=== PATIENT | female | born 1965 | race Caucasian/White ===

== ENCOUNTER → 2017-01-09 | Outpatient (CLI) | payer OTHER ==
[~2017-01-09] MED LIST: /DULO30CA; ABIL2TAB; CELE20TA; CELE40TA; CELE40TA PO; KLON0.5T; KLON1TAB; MELO15TA4 PO; NEUR100C; SYNT88TA; SYNT88TA2 PO; TOPA25TA10 PO; TRAZ50TA4 PO
[2017-01-09 17:55] LABS: BASO % 0.5 % (0.0-1.0); EOS # 0.2 K/mm3 (0.0-0.50); EOS % 4.1 % (0.0-3.0); LARGE UNSTAINED CELL # 0.1 K/mm3 (0.0-0.4); LARGE UNSTAINED CELL % 1.2 % (0.0-4.0); LYMPH % 16.5 % (24.0-44.0); MEAN CORPUSCULAR HEMOGLOBIN 31.1 pg (27.0-33.0); MEAN CORPUSCULAR HGB CONC 34.1 g/dl (32.0-36.5); MONO # 0.3 K/mm3 (0.0-0.8); NEUTROPHILS # 4.6 K/mm3 (1.8-7.7); NEUTROPHILS % 72.7 % (36.0-66.0); PLATELET COUNT, AUTOMATED 257 k/mm3 (150-450); RED CELL DISTRIBUTION WIDTH 13.1 % (11.5-14.5); WHITE BLOOD COUNT 6.2 K/mm3 (4.0-10.0)
[2017-01-09 17:58] LABS: ALBUMIN 4.1 GM/DL (3.2-5.2); ALBUMIN/GLOBULIN RATIO 1.28 (1.00-1.93); ALKALINE PHOSPHATASE 81 U/L (45-117); ALT/SGPT 17 U/L (12-78); ANION GAP 4 MEQ/L (8-16); AST/SGOT 14 U/L (15-37); BILIRUBIN,TOTAL 0.4 MG/DL (0.2-1.0); BLOOD UREA NITROGEN 7 MG/DL (7-18); CALCIUM LEVEL 9.4 MG/DL (8.5-10.1); CARBON DIOXIDE LEVEL 33 MEQ/L (21-32); CHLORIDE LEVEL 106 MEQ/L (98-107); CHOLESTEROL LEVEL 172 MG/DL (<200); GLOMERULAR FILTRATION RATE > 60.0 (>51); GLUCOSE, FASTING 92 MG/DL (70-105); POTASSIUM SERUM 4.7 MEQ/L (3.5-5.1); SODIUM LEVEL 143 MEQ/L (136-145); TOTAL PROTEIN 7.3 GM/DL (6.4-8.2); TRIGLYCERIDES LEVEL 118 MG/DL (<150)
== END ==
LOC: M WUC 12:11
DX: Z00.01 Encounter for general adult medical examination with abnormal findings (principal); Z20.89 Contact with and (suspected) exposure to other communicable diseases; E03.8 Other specified hypothyroidism

== ENCOUNTER → 2017-08-24 | Outpatient (REF) | payer OTHER ==
[~2017-08-24] MED LIST changes: +TOPA1TAB PO; -TOPA25TA10 PO; +TRAZ50TA11 PO; -TRAZ50TA4 PO
[2017-08-24 20:53] LABS: MEAN CORPUSCULAR HEMOGLOBIN 29.9 pg (27.0-33.0); MEAN CORPUSCULAR HGB CONC 33.3 g/dl (32.0-36.5); MEAN CORPUSCULAR VOLUME 89.8 fl (80.0-96.0); PLATELET COUNT, AUTOMATED 250 10^3/uL (150-450); RED CELL DISTRIBUTION WIDTH 12.9 % (11.5-14.5); WHITE BLOOD COUNT 5.3 10^3/uL (4.0-10.0)
[2017-08-24 21:37] LABS: ALBUMIN 3.9 GM/DL (3.2-5.2); ALKALINE PHOSPHATASE 74 U/L (45-117); ALT/SGPT 22 U/L (12-78); ANION GAP 4 MEQ/L (8-16); AST/SGOT 16 U/L (7-37); BILIRUBIN,TOTAL 0.3 MG/DL (0.2-1.0); BLOOD UREA NITROGEN 12 MG/DL (7-18); CALCIUM LEVEL 9.2 MG/DL (8.5-10.1); CARBON DIOXIDE LEVEL 32 MEQ/L (21-32); CHLORIDE LEVEL 107 MEQ/L (98-107); CHOLESTEROL LEVEL 159 MG/DL (<200); CREATININE FOR GFR 0.74 MG/DL (0.55-1.02); GLOMERULAR FILTRATION RATE > 60.0 (>51); GLUCOSE, FASTING 90 MG/DL (70-105); POTASSIUM SERUM 4.5 MEQ/L (3.5-5.1); SODIUM LEVEL 143 MEQ/L (136-145); TOTAL PROTEIN 6.9 GM/DL (6.4-8.2); TRIGLYCERIDES LEVEL 106 MG/DL (<150)
== END ==
LOC: M SFHCLERA 16:01
PROVIDERS: ATTEND Physician Assistant
DX: E03.9 Hypothyroidism, unspecified (principal); Z72.0 Tobacco use

== ENCOUNTER → 2017-10-12 | Outpatient (REF) | payer OTHER ==
[2017-10-15 14:13] LABS: HPV HYBRID CAPTURE II Positive (Negative)
== END ==
LOC: M SFHCWAGY 09:32
DX: Z12.4 Encounter for screening for malignant neoplasm of cervix (principal)

== ENCOUNTER → 2017-10-13 | Outpatient (CLI) | payer OTHER | LOC: M WHC 13:01 | DX: Z12.31 Encounter for screening mammogram for malignant neoplasm of breast (principal) | CPT/HCPCS: 76830 ==

== ENCOUNTER → 2017-11-01 | Outpatient (REF) | payer OTHER | LOC: M SFHCWAGY 15:47 | DX: R87.810 Cervical high risk human papillomavirus (HPV) DNA test positive (principal) ==

== ENCOUNTER → 2017-12-14 | Outpatient (CLI) | payer OTHER ==
[2017-12-14 19:53] LABS: BASO # 0.1 10^3/uL (0.0-0.2); EOS # 0.4 10^3/uL (0.0-0.50); HEMATOCRIT 41.2 % (36.0-47.0); HEMOGLOBIN 13.6 g/dl (12.0-16.0); IMMATURE GRANULOCYTE % 0.2 % (0-3.0); LYMPH # 1.3 10^3/uL (1.5-4.5); LYMPH % 23.8 % (24.0-44.0); MEAN CORPUSCULAR VOLUME 87.8 fl (80.0-96.0); MONO # 0.4 10^3/uL (0.0-0.8); MONO % 7.2 % (0.0-5.0); NEUTROPHILS # 3.2 10^3/uL (1.8-7.7); NEUTROPHILS % 60.8 % (36.0-66.0); PLATELET COUNT, AUTOMATED 238 10^3/uL (150-450); RED BLOOD COUNT 4.69 10^6/uL (4.00-5.40); RED CELL DISTRIBUTION WIDTH 13.2 % (11.5-14.5); WHITE BLOOD COUNT 5.3 10^3/uL (4.0-10.0)
[2017-12-14 20:13] LABS: ESTIMATED AVERAGE GLUCOSE 97 MG/DL (60-110)
[2017-12-14 20:14] LABS: TOTAL 25(OH) VITAMIN D 20.4 NG/ML (30.0-100.0); VITAMIN B12 LEVEL 473 PG/ML (247-911)
[2017-12-14 20:41] LABS: ALBUMIN 3.8 GM/DL (3.2-5.2); ALBUMIN/GLOBULIN RATIO 1.23 (1.00-1.93); ALKALINE PHOSPHATASE 79 U/L (45-117); ALT/SGPT 14 U/L (12-78); ANION GAP 3 MEQ/L (8-16); AST/SGOT 15 U/L (7-37); BILIRUBIN,TOTAL 0.4 MG/DL (0.2-1.0); BLOOD UREA NITROGEN 11 MG/DL (7-18); CALCIUM LEVEL 9.1 MG/DL (8.5-10.1); CARBON DIOXIDE LEVEL 31 MEQ/L (21-32); CHLORIDE LEVEL 111 MEQ/L (98-107); CHOLESTEROL LEVEL 193 MG/DL (<200); CHOLESTEROL RISK RATIO 5.361 (<5); CREATININE FOR GFR 0.75 MG/DL (0.55-1.30); GLOMERULAR FILTRATION RATE > 60.0 (>51); GLUCOSE, FASTING 95 MG/DL (70-100); HDL CHOLESTEROL 36 MG/DL (>40); LDL CHOLESTEROL 125.8 MG/DL (<100); NON-HDL-C 157 MG/DL; POTASSIUM SERUM 4.6 MEQ/L (3.5-5.1); SODIUM LEVEL 145 MEQ/L (136-145); TOTAL PROTEIN 6.9 GM/DL (6.4-8.2); TRIGLYCERIDES LEVEL 156 MG/DL (<150)
== END ==
LOC: M WUC 15:44
DX: F33.1 Major depressive disorder, recurrent, moderate (principal)
CPT/HCPCS: 84443

== ENCOUNTER → 2017-12-24 | Outpatient (REF) | payer OTHER ==
[2017-12-24 12:33] LABS: BASO # 0.1 10^3/uL (0.0-0.2); BASO % 1.1 % (0.0-1.0); EOS # 0.5 10^3/uL (0.0-0.50); EOS % 9.7 % (0.0-3.0); HEMATOCRIT 42.9 % (36.0-47.0); HEMOGLOBIN 14.2 g/dl (12.0-15.5); IMMATURE GRANULOCYTE % 0.2 % (0-3.0); LYMPH # 1.1 10^3/uL (1.5-4.5); LYMPH % 20.3 % (24.0-44.0); MEAN CORPUSCULAR HEMOGLOBIN 28.9 pg (27.0-33.0); MEAN CORPUSCULAR HGB CONC 33.1 g/dl (32.0-36.5); MEAN CORPUSCULAR VOLUME 87.4 fl (80.0-96.0); MONO # 0.5 10^3/uL (0.0-0.8); MONO % 9.7 % (0.0-5.0); NEUTROPHILS # 3.1 10^3/uL (1.8-7.7); PLATELET COUNT, AUTOMATED 255 10^3/uL (150-450); RED BLOOD COUNT 4.91 10^6/uL (4.00-5.40); RED CELL DISTRIBUTION WIDTH 13.2 % (11.5-14.5); WHITE BLOOD COUNT 5.3 10^3/uL (4.0-10.0)
[2017-12-24 13:05] LABS: ESTIMATED AVERAGE GLUCOSE 105 MG/DL (60-110); HEMOGLOBIN A1c 5.3 %
[2017-12-24 13:23] LABS: VITAMIN B12 LEVEL 613 PG/ML
[2017-12-24 13:24] LABS: FOLATE 11.8 NG/ML
[2017-12-24 13:25] LABS: ALBUMIN 4.1 GM/DL (3.2-5.2); ALBUMIN/GLOBULIN RATIO 1.37 (1.00-1.93); ALKALINE PHOSPHATASE 82 U/L (45-117); ALT/SGPT 11 U/L (12-78); ANION GAP 6 MEQ/L (8-16); AST/SGOT 12 U/L (7-37); BILIRUBIN,TOTAL 0.4 MG/DL (0.2-1.0); BLOOD UREA NITROGEN 14 MG/DL (7-18); CALCIUM LEVEL 8.8 MG/DL (8.5-10.1); CARBON DIOXIDE LEVEL 28 MEQ/L (21-32); CHLORIDE LEVEL 109 MEQ/L (98-107); CREATININE FOR GFR 0.78 MG/DL (0.55-1.30); GLOMERULAR FILTRATION RATE > 60.0 (>51); GLUCOSE, FASTING 79 MG/DL (70-100); POTASSIUM SERUM 3.7 MEQ/L (3.5-5.1); RHEUMATOID FACTOR QUANT < 10.0 IU/ML (<15.0); SODIUM LEVEL 143 MEQ/L (136-145); THYROID STIMULATING HORMONE 0.677 uIU/ML (0.358-3.740); TOTAL PROTEIN 7.1 GM/DL (6.4-8.2)
[2017-12-24 14:06] LABS: ERYTHROCYTE SEDIMENTATION RATE 5 mm/hr (0-30)
[2017-12-27 14:28] LABS: ALPHA-1-GLOBULIN % 3.9 % (2.9-4.9); ALPHA-1-GLOBULINS 0.28 GM/DL (0.17-0.41); ALPHA-2-GLOBULINS 0.76 GM/DL (0.42-0.99); ALPHA-2-GLOBULINS % 10.7 % (7.1-11.8); BETA-1-GLOBULINS 0.48 GM/DL (0.28-0.60); BETA-1-GLOBULINS % 6.7 % (4.7-7.2); BETA-2-GLOBULINS 0.35 GM/DL (0.19-0.55); BETA-2-GLOBULINS % 4.9 % (3.2-6.5); GAMMA GLOBULIN % 11.8 % (11.1-18.8); GAMMA GLOBULINS 0.84 GM/DL (0.65-1.58)
[2017-12-28 09:59] LABS: DRVV SCREEN 36.7 SEC; PTT LUPUS TYPE ANTICOAG SCREEN 0.9 (0-1.2)
[2017-12-30 00:07] LABS: ANTI DOUBLE STRAND-DNA AB <1 IU/mL (0-9); ANTINUCLEAR ANTIBODIES DIRECT Negative (Negative); CERULOPLASMIN 22.3 mg/dL (19.0-39.0); COPPER PLASMA 117 ug/dL (72-166); LEAD BLOOD ADULT 2 ug/dL (0-19); MERCURY LEVEL None Detected ug/L (0.0-14.9); SJOGREN'S ANTI SS-A <0.2 AI (0.0-0.9); SJOGREN'S ANTI SS-B <0.2 AI (0.0-0.9); VITAMIN B1 LEVEL WHOLE BLOOD 106.7 nmol/L (66.5-200.0); VITAMIN B6,PYRIDOXAL PHOSPHATE 4.3 ug/L (2.0-32.8); VITAMIN E(ALPHA TOCOPHEROL) 9.8 mg/L (7.0-25.1); VITAMIN E(GAMMA TOCOPHEROL) 1.6 mg/L (0.5-5.5)
== END ==
LOC: M LABNEURO 09:38
DX: R25.1 Tremor, unspecified (principal); G58.9 Mononeuropathy, unspecified
CPT/HCPCS: 82525

== ENCOUNTER 2018-01-19 00:11 | Emergency (ER) | payer OTHER | END 2018-01-19 05:10 | disposition left against medical advice (07) | LOC: M ED 00:11 | DX: Z53.21 Procedure and treatment not carried out due to patient leaving prior to being seen by health care provider (principal) ==

== ENCOUNTER 2018-01-21 10:54 | Emergency (ER) | payer OTHER ==
[2018-01-21] MEDS: METHOCARBAMOL 500 MG TAB PO (11:33)
[2018-01-21] MEDS: KETOROLAC 60 MG/2 ML VIAL (J1885) IM (11:33)
== END 2018-01-21 11:58 | disposition home or self-care (01) ==
LOC: M ED 10:54
DX: M54.9 Dorsalgia, unspecified (principal); E07.9 Disorder of thyroid, unspecified; F17.210 Nicotine dependence, cigarettes, uncomplicated
CPT/HCPCS: J1885

== ENCOUNTER 2018-02-17 22:46 | Inpatient (IN) | payer MEDICAID, OTHER ==
[2018-02-17 23:23] LABS: HEMATOCRIT 39.4 % (36.0-47.0); HEMOGLOBIN 13.1 g/dl (12.0-15.5); MEAN CORPUSCULAR HEMOGLOBIN 29.1 pg (27.0-33.0); MEAN CORPUSCULAR HGB CONC 33.2 g/dl (32.0-36.5); MEAN CORPUSCULAR VOLUME 87.6 fl (80.0-96.0); PLATELET COUNT, AUTOMATED 275 10^3/uL (150-450); RED CELL DISTRIBUTION WIDTH 13.1 % (11.5-14.5); WHITE BLOOD COUNT 6.7 10^3/uL (4.0-10.0)
[2018-02-18 00:04] LABS: AMPHETAMINES LEVEL URINE NEGATIVE (NEGATIVE); BARBITURATES URINE NEGATIVE (NEGATIVE); BENZODIAZEPINES URINE NEGATIVE (NEGATIVE); CANNABINOIDS URINE POSITIVE (NEGATIVE); COCAINE METABOLITE URINE NEGATIVE (NEGATIVE); METHADONE URINE NEGATIVE (NEGATIVE); OPIATES URINE NEGATIVE (NEGATIVE); PHENCYCLIDINE URINE NEGATIVE (NEGATIVE)
[2018-02-18] MEDS: NICOTINE 21MG/24HR 1 EA TRANSDERMAL TD (01:07)
[2018-02-18 01:31] LABS: BLOOD UREA NITROGEN 23 MG/DL (7-18); CHLORIDE LEVEL 107 MEQ/L (98-107); CREATININE FOR GFR 1.06 MG/DL (0.55-1.30); GLUCOSE, FASTING 101 MG/DL (70-100); POTASSIUM SERUM 3.8 MEQ/L (3.5-5.1); SODIUM LEVEL 140 MEQ/L (136-145)
[2018-02-18 01:32] LABS: ACETAMINOPHEN LEVEL < 2.0 UG/ML (10.0-30.0); ALBUMIN 4.4 GM/DL (3.2-5.2); ALBUMIN/GLOBULIN RATIO 1.33 (1.00-1.93); ALKALINE PHOSPHATASE 83 U/L (45-117); ALT/SGPT 25 U/L (12-78); ANION GAP 4 MEQ/L (8-16); AST/SGOT 21 U/L (7-37); BILIRUBIN,DIRECT 0.1 MG/DL (0.0-0.2); BILIRUBIN,TOTAL 0.4 MG/DL (0.2-1.0); CALCIUM LEVEL 9.2 MG/DL (8.5-10.1); CARBON DIOXIDE LEVEL 29 MEQ/L (21-32); ETHYL ALCOHOL (ETHANOL) < 0.003 % (0.000-0.010); SALICYLATE LEVEL 3.6 MG/DL (5.0-30.0); TOTAL PROTEIN 7.7 GM/DL (6.4-8.2)
[2018-02-18] MEDS: diphenhydrAMINE INJ 50MG/ML VIAL (J1200) IM (02:19)
[2018-02-18] MEDS: HALOPERIDOL 5 MG/ML VIAL (J1630) IM (02:20)
[2018-02-18] MEDS ORDERED: MOM 30ML SUSPENSION UDC PO (06:45)
[2018-02-18] MEDS ORDERED: traZODone 50 MG TAB PO (06:45)
[2018-02-18] MEDS ORDERED: MAALOX 30 ML SUSP *UDC PO (06:45)
[2018-02-18] MEDS: ACETAMINOPHEN TAB 650MG DOSE (2X325MG) PO ×2 (12:24→21:52)
[2018-02-18] MEDS ORDERED: hydrOXYzine 25 MG TAB PO (12:30)
[2018-02-18] MEDS: lamoTRIgine 25 MG TAB PO ×2 (13:32→21:50)
[2018-02-18] MEDS: LEVOTHYROXINE 88MCG TABLET (0.088 MG) PO (13:33)
[2018-02-18] MEDS: DULoxetine 30 MG CAP (CYMBALTA) PO (13:33)
[2018-02-18] MEDS: MELOXICAM (MOBIC) 7.5 MG TAB PO (13:33)
[2018-02-18] MEDS: LURASIDONE HCL 40 MG TAB (LATUDA) PO (17:46)
[2018-02-19] MEDS: traZODone 50 MG TAB PO ×2 (00:05→21:10)
[2018-02-19] MEDS: LEVOTHYROXINE 88MCG TABLET (0.088 MG) PO (06:00)
[2018-02-19] MEDS: lamoTRIgine 25 MG TAB PO ×2 (08:14→21:09)
[2018-02-19] MEDS: MELOXICAM (MOBIC) 7.5 MG TAB PO (08:14)
[2018-02-19] MEDS: DULoxetine 30 MG CAP (CYMBALTA) PO (08:14)
[2018-02-19] MEDS: ACETAMINOPHEN TAB 650MG DOSE (2X325MG) PO ×2 (13:38→21:09)
[2018-02-19] MEDS: LURASIDONE HCL 40 MG TAB (LATUDA) PO (17:49)
[2018-02-19] MEDS: NICOTINE 21MG/24HR 1 EA TRANSDERMAL TD (18:09)
[2018-02-20] MEDS: LEVOTHYROXINE 88MCG TABLET (0.088 MG) PO (06:07)
[2018-02-20] MEDS: DULoxetine 30 MG CAP (CYMBALTA) PO (09:15)
[2018-02-20] MEDS: MELOXICAM (MOBIC) 7.5 MG TAB PO (09:15)
[2018-02-20] MEDS: lamoTRIgine 25 MG TAB PO ×2 (09:15→21:30)
[2018-02-20] MEDS: NICOTINE 21MG/24HR 1 EA TRANSDERMAL TD (09:15)
[2018-02-20] MEDS: LURASIDONE HCL 40 MG TAB (LATUDA) PO (18:07)
[2018-02-20] MEDS: ACETAMINOPHEN TAB 650MG DOSE (2X325MG) PO (19:16)
[2018-02-20] MEDS: traZODone 50 MG TAB PO (22:59)
[2018-02-21] MEDS: LEVOTHYROXINE 88MCG TABLET (0.088 MG) PO (06:05)
[2018-02-21] MEDS: DULoxetine 30 MG CAP (CYMBALTA) PO (08:30)
[2018-02-21] MEDS: NICOTINE 21MG/24HR 1 EA TRANSDERMAL TD (08:31)
[2018-02-21] MEDS: MELOXICAM (MOBIC) 7.5 MG TAB PO (08:31)
[2018-02-21] MEDS: lamoTRIgine 25 MG TAB PO (08:31)
== END 2018-02-21 14:20 | disposition home or self-care (01) | DRG 885 ==
LOC: M PSY 02-19 21:18 → M ED 22:46 → M ED INP 02-18 06:31 → M PSY 02-18 10:03
DX: F31.64 Bipolar disorder, current episode mixed, severe, with psychotic features (principal); R45.851 Suicidal ideations; F41.9 Anxiety disorder, unspecified; G47.00 Insomnia, unspecified; E03.9 Hypothyroidism, unspecified; M54.5 Low back pain; M54.2 Cervicalgia; Z79.899 Other long term (current) drug therapy; Z88.2 Allergy status to sulfonamides; Z88.8 Allergy status to other drugs, medicaments and biological substances; F17.200 Nicotine dependence, unspecified, uncomplicated; G89.29 Other chronic pain

== ENCOUNTER 2018-03-16 00:25 | Inpatient (IN) | payer MEDICAID, OTHER ==
[2018-03-16 01:11] LABS: HEMOGLOBIN 12.6 g/dl (12.0-15.5); MEAN CORPUSCULAR HEMOGLOBIN 29.2 pg (27.0-33.0); MEAN CORPUSCULAR HGB CONC 34.1 g/dl (32.0-36.5); MEAN CORPUSCULAR VOLUME 85.6 fl (80.0-96.0); PLATELET COUNT, AUTOMATED 274 10^3/uL (150-450); RED BLOOD COUNT 4.32 10^6/uL (4.00-5.40); RED CELL DISTRIBUTION WIDTH 13.2 % (11.5-14.5); WHITE BLOOD COUNT 6.9 10^3/uL (4.0-10.0)
[2018-03-16 01:29] LABS: AMPHETAMINES LEVEL URINE NEGATIVE (NEGATIVE); BARBITURATES URINE NEGATIVE (NEGATIVE); BENZODIAZEPINES URINE NEGATIVE (NEGATIVE); CANNABINOIDS URINE POSITIVE (NEGATIVE); COCAINE METABOLITE URINE NEGATIVE (NEGATIVE); METHADONE URINE NEGATIVE (NEGATIVE); OPIATES URINE NEGATIVE (NEGATIVE); PHENCYCLIDINE URINE NEGATIVE (NEGATIVE)
[2018-03-16 01:35] LABS: ALBUMIN/GLOBULIN RATIO 1.33 (1.00-1.93); ALKALINE PHOSPHATASE 78 U/L (45-117); ALT/SGPT 21 U/L (12-78); ANION GAP 5 MEQ/L (8-16); AST/SGOT 18 U/L (7-37); BILIRUBIN,DIRECT < 0.1 MG/DL (0.0-0.2); BILIRUBIN,TOTAL 0.2 MG/DL (0.2-1.0); BLOOD UREA NITROGEN 15 MG/DL (7-18); CALCIUM LEVEL 8.6 MG/DL (8.5-10.1); CARBON DIOXIDE LEVEL 30 MEQ/L (21-32); CHLORIDE LEVEL 109 MEQ/L (98-107); CREATININE FOR GFR 1.46 MG/DL (0.55-1.30); ETHYL ALCOHOL (ETHANOL) < 0.003 % (0.000-0.010); GLOMERULAR FILTRATION RATE 39.9 (>51); GLUCOSE, FASTING 96 MG/DL (70-100); POTASSIUM SERUM 4.2 MEQ/L (3.5-5.1); SALICYLATE LEVEL 3.5 MG/DL (5.0-30.0); SODIUM LEVEL 144 MEQ/L (136-145)
[2018-03-16 01:47] LABS: ACETAMINOPHEN LEVEL < 2.0 UG/ML (10.0-30.0)
[2018-03-16] MEDS ORDERED: MOM 30ML SUSPENSION UDC PO (03:15)
[2018-03-16] MEDS ORDERED: MAALOX 30 ML SUSP *UDC PO (03:15)
[2018-03-16] MEDS ORDERED: ALBUTEROL 90 MCG/ACT 8GM HFA INHALER INH (04:45)
[2018-03-16] MEDS ORDERED: ACETAMINOPHEN 500 MG TAB PO (04:45)
[2018-03-16] MEDS ORDERED: FLUTICASONE PROP 0.05% NASAL SPRAY 16 GM (FLONASE) ×2 (04:49→05:15)
[2018-03-16] MEDS: LEVOTHYROXINE 88MCG TABLET (0.088 MG) PO (06:19)
[2018-03-16] MEDS: lamoTRIgine 25 MG TAB PO ×2 (09:23→21:39)
[2018-03-16] MEDS: MELOXICAM (MOBIC) 7.5 MG TAB PO (09:23)
[2018-03-16] MEDS: DULoxetine 30 MG CAP (CYMBALTA) PO (09:23)
[2018-03-16] MEDS: MULTIVITAMINS/MINERALS THERAP 1 TAB PO (09:23)
[2018-03-16] MEDS: hydrOXYzine 25 MG TAB PO (09:24)
[2018-03-16] MEDS: ARIPiprazole 10 MG TAB PO ×2 (12:58→21:39)
[2018-03-16] MEDS: NICOTINE 21MG/24HR 1 EA TRANSDERMAL TD (12:59)
[2018-03-16] MEDS: ACETAMINOPHEN TAB 650MG DOSE (2X325MG) PO (17:07)
[2018-03-16] MEDS ORDERED: LURASIDONE 20 MG TAB (LATUDA) PO (21:00)
[2018-03-16] MEDS: traZODone 50 MG TAB PO (23:07)
[2018-03-17] MEDS: LEVOTHYROXINE 88MCG TABLET (0.088 MG) PO (06:28)
[2018-03-17] MEDS: MULTIVITAMINS/MINERALS THERAP 1 TAB PO (09:00)
[2018-03-17] MEDS: NICOTINE 21MG/24HR 1 EA TRANSDERMAL TD (09:00)
[2018-03-17] MEDS: MELOXICAM (MOBIC) 7.5 MG TAB PO (09:01)
[2018-03-17] MEDS: DULoxetine 30 MG CAP (CYMBALTA) PO (09:01)
[2018-03-17] MEDS: lamoTRIgine 25 MG TAB PO ×2 (09:01→21:30)
[2018-03-17] MEDS: ARIPiprazole 10 MG TAB PO ×2 (09:01→21:31)
[2018-03-17] MEDS: ACETAMINOPHEN TAB 650MG DOSE (2X325MG) PO ×2 (09:02→18:10)
[2018-03-17] MEDS: traZODone 50 MG TAB PO (23:02)
[2018-03-18] MEDS: LEVOTHYROXINE 88MCG TABLET (0.088 MG) PO (06:28)
[2018-03-18] MEDS: lamoTRIgine 25 MG TAB PO ×2 (08:58→21:47)
[2018-03-18] MEDS: MELOXICAM (MOBIC) 7.5 MG TAB PO (08:58)
[2018-03-18] MEDS: MULTIVITAMINS/MINERALS THERAP 1 TAB PO (08:59)
[2018-03-18] MEDS: DULoxetine 30 MG CAP (CYMBALTA) PO (08:59)
[2018-03-18] MEDS: NICOTINE 21MG/24HR 1 EA TRANSDERMAL TD (08:59)
[2018-03-18] MEDS: ACETAMINOPHEN TAB 650MG DOSE (2X325MG) PO (14:12)
[2018-03-18] MEDS: ARIPiprazole 10 MG TAB PO (21:47)
[2018-03-18] MEDS: traZODone 50 MG TAB PO (22:50)
[2018-03-19] MEDS: LEVOTHYROXINE 88MCG TABLET (0.088 MG) PO (06:14)
[2018-03-19] MEDS: MELOXICAM (MOBIC) 7.5 MG TAB PO (08:52)
[2018-03-19] MEDS: NICOTINE 21MG/24HR 1 EA TRANSDERMAL TD (08:52)
[2018-03-19] MEDS: lamoTRIgine 25 MG TAB PO ×2 (08:52→20:57)
[2018-03-19] MEDS: DULoxetine 30 MG CAP (CYMBALTA) PO (08:52)
[2018-03-19] MEDS: MULTIVITAMINS/MINERALS THERAP 1 TAB PO (08:52)
[2018-03-19] MEDS: hydrOXYzine 25 MG TAB PO ×2 (13:30→20:57)
[2018-03-19] MEDS: ARIPiprazole 10 MG TAB PO (20:57)
[2018-03-19] MEDS: traZODone 50 MG TAB PO (23:50)
[2018-03-20] MEDS: LEVOTHYROXINE 88MCG TABLET (0.088 MG) PO (06:07)
[2018-03-20] MEDS: DULoxetine 30 MG CAP (CYMBALTA) PO (09:09)
[2018-03-20] MEDS: lamoTRIgine 25 MG TAB PO ×2 (09:09→22:23)
[2018-03-20] MEDS: MULTIVITAMINS/MINERALS THERAP 1 TAB PO (09:09)
[2018-03-20] MEDS: MELOXICAM (MOBIC) 7.5 MG TAB PO (09:09)
[2018-03-20] MEDS: NICOTINE 21MG/24HR 1 EA TRANSDERMAL TD (09:09)
[2018-03-20] MEDS: ARIPiprazole 10 MG TAB PO (22:23)
[2018-03-20] MEDS: traZODone 50 MG TAB PO (22:24)
[2018-03-21] MEDS: LEVOTHYROXINE 88MCG TABLET (0.088 MG) PO (05:59)
[2018-03-21] MEDS: NICOTINE 21MG/24HR 1 EA TRANSDERMAL TD (09:00)
[2018-03-21] MEDS: MELOXICAM (MOBIC) 7.5 MG TAB PO (09:31)
[2018-03-21] MEDS: MULTIVITAMINS/MINERALS THERAP 1 TAB PO (09:31)
[2018-03-21] MEDS: lamoTRIgine 25 MG TAB PO (09:32)
[2018-03-21] MEDS: DULoxetine 30 MG CAP (CYMBALTA) PO (09:32)
== END 2018-03-21 14:35 | disposition home or self-care (01) | DRG 885 ==
LOC: M PSY 03-20 09:59 → M ED 00:25 → M ED INP 03:04 → M PSY 03:48
DX: F31.9 Bipolar disorder, unspecified (principal); R45.851 Suicidal ideations; F41.9 Anxiety disorder, unspecified; F12.90 Cannabis use, unspecified, uncomplicated; Z88.2 Allergy status to sulfonamides; Z88.8 Allergy status to other drugs, medicaments and biological substances; Z88.1 Allergy status to other antibiotic agents; E03.9 Hypothyroidism, unspecified; M54.5 Low back pain; M54.2 Cervicalgia; J45.909 Unspecified asthma, uncomplicated; G47.00 Insomnia, unspecified; F17.200 Nicotine dependence, unspecified, uncomplicated; Z79.899 Other long term (current) drug therapy

== ENCOUNTER 2018-03-29 21:03 | Emergency (ER) | payer OTHER, MEDICAID ==
[2018-03-29] MEDS: NS 1,000 ML IV (22:49)
[2018-03-29 23:02] LABS: BASO % 0.6 % (0.0-1.0); EOS # 0.2 10^3/uL (0.0-0.50); EOS % 2.6 % (0.0-3.0); HEMATOCRIT 38.4 % (36.0-47.0); HEMOGLOBIN 12.9 g/dl (12.0-15.5); IMMATURE GRANULOCYTE % 0.3 % (0-3.0); LYMPH # 1.6 10^3/uL (1.5-4.5); LYMPH % 22.3 % (24.0-44.0); MEAN CORPUSCULAR HEMOGLOBIN 29.3 pg (27.0-33.0); MEAN CORPUSCULAR HGB CONC 33.6 g/dl (32.0-36.5); MEAN CORPUSCULAR VOLUME 87.3 fl (80.0-96.0); MONO # 0.4 10^3/uL (0.0-0.8); NEUTROPHILS # 4.9 10^3/uL (1.8-7.7); NEUTROPHILS % 68.2 % (36.0-66.0); PLATELET COUNT, AUTOMATED 286 10^3/uL (150-450); RED CELL DISTRIBUTION WIDTH 13.7 % (11.5-14.5); WHITE BLOOD COUNT 7.2 10^3/uL (4.0-10.0)
[2018-03-29 23:06] LABS: KETONE, URINE AUTO RFX NEGATIVE (NEGATIVE); LEUKOCYTE ESTERASE UR AUTO RFX TRACE (NEGATIVE); MUCUS, URINE RFX SMALL (NEGATIVE); NITRITE, URINE AUTO RFX NEGATIVE (NEGATIVE); RBC, URINE AUTO RFX 0 /HPF (0-3); SPECIFIC GRAVITY UR AUTO RFX 1.003 (1.002-1.035); SQUAM EPITHELIAL CELL UR AURFX 0 /HPF (0-6); WBC, URINE AUTO RFX 1 /HPF (0-3)
[2018-03-29 23:22] LABS: ALBUMIN 4.5 GM/DL (3.2-5.2); ALBUMIN/GLOBULIN RATIO 1.41 (1.00-1.93); ALKALINE PHOSPHATASE 79 U/L (45-117); ALT/SGPT 20 U/L (12-78); ANION GAP 5 MEQ/L (8-16); AST/SGOT 16 U/L (7-37); BILIRUBIN,DIRECT 0.1 MG/DL (0.0-0.2); BILIRUBIN,TOTAL 0.3 MG/DL (0.2-1.0); BLOOD UREA NITROGEN 15 MG/DL (7-18); CALCIUM LEVEL 9.5 MG/DL (8.5-10.1); CARBON DIOXIDE LEVEL 30 MEQ/L (21-32); CHLORIDE LEVEL 107 MEQ/L (98-107); CREATININE FOR GFR 0.88 MG/DL (0.55-1.30); GLOMERULAR FILTRATION RATE > 60.0 (>51); GLUCOSE, FASTING 91 MG/DL (70-100); LIPASE 118 U/L (73-393); POTASSIUM SERUM 4.3 MEQ/L (3.5-5.1); SODIUM LEVEL 142 MEQ/L (136-145); TOTAL PROTEIN 7.7 GM/DL (6.4-8.2)
== END 2018-03-30 00:42 | disposition home or self-care (01) ==
LOC: M ED 03-30 00:42
DX: R39.89 Other symptoms and signs involving the genitourinary system (principal); Z87.440 Personal history of urinary (tract) infections; J44.9 Chronic obstructive pulmonary disease, unspecified; Z72.0 Tobacco use; F99 Mental disorder, not otherwise specified; Z79.899 Other long term (current) drug therapy; Z88.2 Allergy status to sulfonamides; Z88.8 Allergy status to other drugs, medicaments and biological substances; Z88.1 Allergy status to other antibiotic agents
CPT/HCPCS: 83690

== ENCOUNTER → 2018-04-07 | Outpatient (REF) | payer OTHER ==
[2018-04-07 18:27] LABS: APPEARANCE, URINE CLEAR (CLEAR); BACTERIA, URINE AUTO NEGATIVE (NEGATIVE); BILIRUBIN, URINE AUTO NEGATIVE (NEGATIVE); BLOOD, URINE BLOOD NEGATIVE (NEGATIVE); COLOR, URINE STRAW (YELLOW); GLUCOSE, URINE (UA) AUTO NEGATIVE (NEGATIVE); KETONE, URINE AUTO NEGATIVE (NEGATIVE); LEUKOCYTE ESTERASE, URINE AUTO TRACE (NEGATIVE); NITRITE, URINE AUTO NEGATIVE (NEGATIVE); PROTEIN, URINE AUTO NEGATIVE (NEGATIVE); RBC, URINE AUTO 0 /HPF (0-3); SPECIFIC GRAVITY URINE AUTO 1.003 (1.002-1.035); SQUAMOUS EPITHELIAL CELL UR AU 1 /HPF (0-6); UROBILINOGEN, URINE AUTO 0.2 mg/dL (0.0-2.0); WBC, URINE AUTO 6 /HPF (0-3)
== END ==
LOC: M SMT 17:02
DX: R39.89 Other symptoms and signs involving the genitourinary system (principal)
CPT/HCPCS: 81001

== ENCOUNTER → 2018-04-14 | Outpatient (REF) | LOC: M SMT 14:10 | DX: Z02.71 Encounter for disability determination (principal) ==

== ENCOUNTER → 2018-08-19 | Outpatient (CLI) | payer OTHER ==
[2018-08-19 18:00] LABS: BASO # 0.1 10^3/uL (0.0-0.2); BASO % 1.2 % (0.0-1.0); EOS # 0.6 10^3/uL (0.0-0.50); HEMATOCRIT 42.9 % (36.0-47.0); HEMOGLOBIN 13.8 g/dl (12.0-15.5); IMMATURE GRANULOCYTE % 0.3 % (0-3.0); LYMPH # 1.3 10^3/uL (1.5-4.5); LYMPH % 19.1 % (24.0-44.0); MEAN CORPUSCULAR HGB CONC 32.2 g/dl (32.0-36.5); MEAN CORPUSCULAR VOLUME 90.1 fl (80.0-96.0); MONO # 0.6 10^3/uL (0.0-0.8); MONO % 8.6 % (0.0-5.0); NEUTROPHILS % 61.8 % (36.0-66.0); PLATELET COUNT, AUTOMATED 265 10^3/uL (150-450); RED BLOOD COUNT 4.76 10^6/uL (4.00-5.40); RED CELL DISTRIBUTION WIDTH 12.9 % (11.5-14.5); WHITE BLOOD COUNT 6.5 10^3/uL (4.0-10.0)
[2018-08-19 18:07] LABS: ALBUMIN 3.9 GM/DL (3.2-5.2); ALBUMIN/GLOBULIN RATIO 1.26 (1.00-1.93); ALKALINE PHOSPHATASE 84 U/L (45-117); ALT/SGPT 19 U/L (12-78); ANION GAP 5 MEQ/L (8-16); AST/SGOT 14 U/L (7-37); BILIRUBIN,DIRECT < 0.1 MG/DL (0.0-0.2); BILIRUBIN,TOTAL 0.3 MG/DL (0.2-1.0); BLOOD UREA NITROGEN 9 MG/DL (7-18); CALCIUM LEVEL 9.2 MG/DL (8.5-10.1); CARBON DIOXIDE LEVEL 32 MEQ/L (21-32); CHLORIDE LEVEL 105 MEQ/L (98-107); CHOLESTEROL LEVEL 177 MG/DL (<200); CHOLESTEROL RISK RATIO 4.425 (<5); CREATININE FOR GFR 0.92 MG/DL (0.55-1.30); FREE T3 2.6 PG/ML (2.2-4.0); FREE T4 1.03 NG/DL (0.76-1.46); GLOMERULAR FILTRATION RATE > 60.0 (>51); GLUCOSE, FASTING 143 MG/DL (70-100); HDL CHOLESTEROL 40 MG/DL (>40); LDL CHOLESTEROL 100 MG/DL (<100); NON-HDL-C 137 MG/DL; PHOSPHORUS LEVEL 2.2 MG/DL (2.5-4.9); POTASSIUM SERUM 4.3 MEQ/L (3.5-5.1); SODIUM LEVEL 142 MEQ/L (136-145); TRIGLYCERIDES LEVEL 183 MG/DL (<150)
[2018-08-19 18:08] LABS: TOTAL 25(OH) VITAMIN D 34.8 NG/ML (30.0-100.0)
[2018-08-19 18:10] LABS: ESTIMATED AVERAGE GLUCOSE 105 MG/DL (60-110); HEMOGLOBIN A1c 5.3 %
== END ==
LOC: M SMT 14:33
DX: F31.81 Bipolar II disorder (principal); Z51.81 Encounter for therapeutic drug level monitoring; Z79.899 Other long term (current) drug therapy; Z13.9 Encounter for screening, unspecified
CPT/HCPCS: 82248

== ENCOUNTER → 2018-09-08 | Outpatient (CLI) | payer OTHER ==
[~2018-09-08] MED LIST changes: +ARIP1TAB2 PO; +CYMB60CA3 PO; +DRIS50003 PO; +FLON1SPR; +HYDR-3363 PO; +IBUP80TA PO; +LAMI25TA PO; +LAMO100T PO; +LAMO10TA PO; +LAMO150T2 PO; +LATU1TAB; +LATU1TAB PO; +LATU40TA PO; +MELO15TA28 PO; -MELO15TA4 PO; +ROBA500T PO; +TRAZ-160 PO; +TRAZ1TAB14 PO; -TRAZ50TA11 PO; +TYLE500T78 PO; +VENTAER INH; +VITMTA PO
[2018-09-08 15:14] LABS: BASO # 0.1 10^3/uL (0.0-0.2); EOS # 0.6 10^3/uL (0.0-0.50); EOS % 10.6 % (0.0-3.0); HEMATOCRIT 42.2 % (36.0-47.0); HEMOGLOBIN 13.9 g/dl (12.0-15.5); LYMPH # 1.4 10^3/uL (1.5-4.5); LYMPH % 22.9 % (24.0-44.0); MEAN CORPUSCULAR HEMOGLOBIN 29.8 pg (27.0-33.0); MEAN CORPUSCULAR HGB CONC 32.9 g/dl (32.0-36.5); MEAN CORPUSCULAR VOLUME 90.6 fl (80.0-96.0); MONO # 0.4 10^3/uL (0.0-0.8); MONO % 6.7 % (0.0-5.0); NEUTROPHILS # 3.5 10^3/uL (1.8-7.7); NEUTROPHILS % 58.5 % (36.0-66.0); PLATELET COUNT, AUTOMATED 235 10^3/uL (150-450); RED BLOOD COUNT 4.66 10^6/uL (4.00-5.40)
[2018-09-08 15:28] LABS: HEMOGLOBIN A1c 5.5 %
[2018-09-08 15:39] LABS: ALT/SGPT 17 U/L (12-78); BILIRUBIN,TOTAL 0.3 MG/DL (0.2-1.0); BLOOD UREA NITROGEN 13 MG/DL (7-18); CALCIUM LEVEL 9.3 MG/DL (8.5-10.1); CARBON DIOXIDE LEVEL 31 MEQ/L (21-32); CHLORIDE LEVEL 105 MEQ/L (98-107); CHOLESTEROL LEVEL 179 MG/DL (<200); CHOLESTEROL RISK RATIO 4.261 (<5); CREATININE FOR GFR 0.85 MG/DL (0.55-1.30); FREE T4 1.11 NG/DL (0.76-1.46); GLOMERULAR FILTRATION RATE > 60.0 (>51); GLUCOSE, FASTING 91 MG/DL (70-100); HDL CHOLESTEROL 42 MG/DL (>40); LDL CHOLESTEROL 117 MG/DL (<100); NON-HDL-C 137 MG/DL; POTASSIUM SERUM 4.4 MEQ/L (3.5-5.1); SODIUM LEVEL 141 MEQ/L (136-145); TOTAL PROTEIN 7.2 GM/DL (6.4-8.2); TRIGLYCERIDES LEVEL 98 MG/DL (<150)
[2018-09-08 15:41] LABS: PTH INTACT 47.7 PG/ML (18.5-88.0)
== END ==
LOC: M LAB 14:19
PROVIDERS: ATTEND Registered Nurse
DX: Z13.228 Encounter for screening for other metabolic disorders (principal); E03.9 Hypothyroidism, unspecified; E55.9 Vitamin D deficiency, unspecified

== ENCOUNTER → 2018-09-08 | Outpatient (CLI) | payer OTHER ==
--- NOTE | 2018-09-08 20:52 | ECGEPIP ---
Stationary ECG Study [facility] Test Date: 2018-09-08 Pat Name: CRYSTAL ARENAS Department: Room: - Gender: F Commissioned Security Officer: : 1965 Requested By: Trupti FAROOQ Order Number: [id number] Reading MD: Jorge Farah Measurements Intervals [place] Rate: 54 P: 44 AK: 184 QRS: 24 QRSD: 104 T: 44 QT: 422 QTc: 401 Interpretive Statements SINUS BRADYCARDIA SIMILAR TO 02/18/18 BUT FOR SLOWER HR Electronically Signed On 09-08-2018 20:52:37 EST by Jorge Farah
== END ==
LOC: M EKG 14:24
PROVIDERS: ATTEND Registered Nurse
DX: F31.81 Bipolar II disorder (principal); R00.1 Bradycardia, unspecified

== ENCOUNTER → 2019-01-25 | Outpatient (CLI) | payer OTHER ==
[~2019-01-25] MED LIST changes: -/DULO30CA; +CYMB1CAP5; +LAMO100T80 PO; -LAMO10TA PO
--- NOTE | 2019-01-25 15:42 | REPMRS ---
Patient History The patient states she had a clinical breast exam in 01/2019. Patient is postmenopausal. No known family history of cancer. No Hormone Replacement Therapy 3D TOMOSYNTHESIS WAS PERFORMED. Digital Woman Screen Mammo: January 25, 2019 - Exam #: [id number] Bilateral CC and MLO view(s) were taken. Technologist: Amy Ignacio, Technologist Prior study comparison: October 13, 2017, digital woman screen mammo performed at [facility]. April 23, 2014, bilateral digital mammo screening bilat, performed at [facility]. FINDINGS: There are scattered fibroglandular densities. There has been no change in the appearance of the mammogram from the prior studies. There is a mild amount of residual fibroglandular tissue which is fairly symmetric. There is no interval development of dominant mass, architectural distortion, or clustered microcalcification suggestive of malignancy. Assessment: BI-RADS/ACR category 1 mammogram. Negative Mammogram. Recommendation Routine screening mammogram in 1 year (for women over age 40). This mammogram was interpreted with the aid of an FDA-approved computer-aided dectection system. Electronically Signed By: Jose Carlos Lomas MD 01/25/19 [id number]
== END ==
LOC: M WHC 14:19
PROVIDERS: ATTEND Nurse Practitioner Women's Health
DX: Z12.31 Encounter for screening mammogram for malignant neoplasm of breast (principal); Z78.0 Asymptomatic menopausal state

== ENCOUNTER → 2019-01-25 | Outpatient (REF) | payer OTHER ==
[2019-01-28 14:15] LABS: HPV HYBRID CAPTURE II Negative (Negative)
== END ==
LOC: M SFHCWAGY 14:58
PROVIDERS: ATTEND Nurse Practitioner Women's Health
DX: Z12.4 Encounter for screening for malignant neoplasm of cervix (principal); R87.610 Atypical squamous cells of undetermined significance on cytologic smear of cervix (ASC-US)

== ENCOUNTER → 2019-05-31 | Outpatient (REF) | payer OTHER ==
[~2019-05-31] MED LIST changes: -TRAZ-160 PO; +TRAZ-252 PO
[2019-05-31 17:51] LABS: HEMATOCRIT 45.8 % (36.0-47.0); HEMOGLOBIN 14.8 g/dl (12.0-15.5); MEAN CORPUSCULAR HEMOGLOBIN 29.6 pg (27.0-33.0); MEAN CORPUSCULAR HGB CONC 32.3 g/dl (32.0-36.5); MEAN CORPUSCULAR VOLUME 91.6 fl (80.0-96.0); PLATELET COUNT, AUTOMATED 286 10^3/uL (150-450); WHITE BLOOD COUNT 6.3 10^3/uL (4.0-10.0)
[2019-05-31 17:57] LABS: ALBUMIN 4.4 GM/DL (3.2-5.2); ALT/SGPT 17 U/L (12-78); BILIRUBIN,TOTAL 0.3 MG/DL (0.2-1.0); BLOOD UREA NITROGEN 7 MG/DL (7-18); CALCIUM LEVEL 9.8 MG/DL (8.5-10.1); CARBON DIOXIDE LEVEL 30 MEQ/L (21-32); CHLORIDE LEVEL 104 MEQ/L (98-107); CHOLESTEROL LEVEL 231 MG/DL (<200); CHOLESTEROL RISK RATIO 5.372 (<5); CREATININE FOR GFR 0.92 MG/DL (0.55-1.30); FREE T4 1.05 NG/DL (0.76-1.46); GLOMERULAR FILTRATION RATE > 60.0 (>51); GLUCOSE, FASTING 84 MG/DL (70-100); HDL CHOLESTEROL 43 MG/DL (>40); LDL CHOLESTEROL 148 MG/DL (<100); NON-HDL-C 188 MG/DL; POTASSIUM SERUM 4.3 MEQ/L (3.5-5.1); SODIUM LEVEL 141 MEQ/L (136-145); TOTAL 25(OH) VITAMIN D 27.2 NG/ML (30.0-100.0); TOTAL PROTEIN 7.2 GM/DL (6.4-8.2); TRIGLYCERIDES LEVEL 200 MG/DL (<150)
[2019-05-31 18:17] LABS: HEMOGLOBIN A1c 5.3 %
== END ==
LOC: M SFHCPLAZ 15:23
PROVIDERS: ATTEND Nurse Practitioner Family
DX: F31.9 Bipolar disorder, unspecified (principal); E03.9 Hypothyroidism, unspecified; E55.9 Vitamin D deficiency, unspecified

== ENCOUNTER → 2019-08-09 | Outpatient (CLI) | payer OTHER ==
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
== END ==
LOC: M PAIN 14:30
PROVIDERS: ATTEND Anesthesiology
DX: M79.18 Myalgia, other site (principal); M54.5 Low back pain; G89.29 Other chronic pain; M51.16 Intervertebral disc disorders with radiculopathy, lumbar region; Z86.59 Personal history of other mental and behavioral disorders; E03.9 Hypothyroidism, unspecified; Z86.14 Personal history of Methicillin resistant Staphylococcus aureus infection; G25.81 Restless legs syndrome; F17.210 Nicotine dependence, cigarettes, uncomplicated; Z88.1 Allergy status to other antibiotic agents; Z79.899 Other long term (current) drug therapy

== ENCOUNTER 2019-09-05 06:37 | Day surgery (SDC) | payer OTHER ==
[~2019-09-05] VITALS: Ht 160 cm; Wt 81.2 kg
[~2019-09-05 06:37] MED LIST changes: +ACET-683 PO; -LAMO100T PO; +LAMO100T3 PO; -LAMO150T2 PO; +LAMO150T3 PO; +OXYB5TAB10 PO; +ZIPR20CA13 PO
[2019-09-05] MEDS ORDERED: NS 1,000 ML IV ONE (07:00)
[2019-09-05] MEDS ORDERED: LIDOCAINE 2% INJ 100 MG/5 ML SDV (FOR ANES.) As Ordered ONE (07:06)
[2019-09-05] MEDS ORDERED: PROPOFOL 200 MG/20 ML VIAL As Ordered ONE ×2 (07:06→07:50)
--- NOTE | 2019-09-05 08:19 | ROOR ---
Patient Name: Thania Maria Procedure Date: 09/05/2019 7:33 AM Date of : 1965 Age: 54 Room: [facility] Gender: Female Note Status: Finalized Procedure: Colonoscopy Indications: Screening for colorectal malignant neoplasm Providers: Skinny Barrow MD Referring MD: Pham Christie, [facility] [place]: Medicines: Monitored Anesthesia Care Complications: No immediate complications. Procedure: Pre-Anesthesia Assessment: - Prior to the procedure, a History and Physical was performed, and patient medications and allergies were reviewed. The patient is competent. The risks and benefits of the procedure and the sedation options and risks were discussed with the patient. All questions were answered and informed consent was obtained. Patient identification and proposed procedure were verified by the physician, the nurse and the anesthesiologist in the procedure room. Mental Status Examination: alert and oriented. Airway Examination: normal oropharyngeal airway and neck mobility. Respiratory Examination: clear to auscultation. CV Examination: normal. Prophylactic Antibiotics: The patient does not require prophylactic antibiotics. Prior Anticoagulants: The patient has taken no previous anticoagulant or antiplatelet agents. ASA Grade Assessment: II - A patient with mild systemic disease. After reviewing the risks and benefits, the patient was deemed in satisfactory condition to undergo the procedure. The anesthesia plan was to use monitored anesthesia care (MAC). Immediately prior to administration of medications, the patient was re-assessed for adequacy to receive sedatives. The heart rate, respiratory rate, oxygen saturations, blood pressure, adequacy of pulmonary ventilation, and response to care were monitored throughout the procedure. The physical status of the patient was re-assessed after the procedure. The Colonoscope was introduced through the anus and advanced to the terminal ileum, with identification of the appendiceal orifice and IC valve. The colonoscopy was performed without difficulty. The patient tolerated the procedure well. The quality of the bowel preparation was fair except the ascending colon was poor. The terminal ileum, ileocecal valve, appendiceal orifice, and rectum were photographed. Scope insertion time was 3 minutes. Scope withdrawal time was 14 minutes. The total duration of the procedure was 17 minutes. Findings: The perianal and digital rectal examinations were normal. The terminal ileum appeared normal. A moderate amount of semi-liquid semi-solid stool was found from rectum to cecum, interfering with visualization. Lavage of the area was performed using a large amount of sterile water, resulting in clearance with fair visualization. A 5 mm polyp was found in the descending colon. The polyp was sessile. The polyp was removed with a jumbo cold forceps. Resection and retrieval were complete. Verification of patient identification for the specimen was done by the physician and nurse using the patient's name, date and medical record number. Estimated blood loss was minimal. Non-bleeding external and internal hemorrhoids were found during retroflexion. The hemorrhoids were medium-sized. Impression: - The examined portion of the ileum was normal. - Stool from rectum to cecum. - One 5 mm polyp in the descending colon, removed with a jumbo cold forceps. Resected and retrieved. - Non-bleeding external and internal hemorrhoids. Recommendation: - Patient has a contact number available for emergencies. The signs and symptoms of potential delayed complications were discussed with the patient. Return to normal activities tomorrow. Written discharge instructions were provided to the patient. - High fiber diet. - Continue present medications. - Await pathology results. - Repeat colonoscopy in 3 - 5 years because the bowel preparation was suboptimal and for surveillance based on pathology results. - Telephone GI clinic for pathology results in 2 weeks. - Return to primary care physician. Skinny Barrow MD Skinny Barrow MD 09/05/2019 8:18:50 AM Electronically signed by Skinny Barrow MD Number of Addenda: 0 Note Initiated On: 09/05/2019 7:33 AM Estimated Blood Loss: Estimated blood loss was minimal.
[2019-09-05 08:29] VITALS: BP 112/59
== END 2019-09-05 08:40 | disposition home or self-care (01) ==
LOC: M OPP 06:37
PROVIDERS: ATTEND Internal Medicine Gastroenterology
DX: Z12.11 Encounter for screening for malignant neoplasm of colon (principal); K64.8 Other hemorrhoids; K63.5 Polyp of colon; G47.30 Sleep apnea, unspecified; F17.210 Nicotine dependence, cigarettes, uncomplicated; Z79.899 Other long term (current) drug therapy; Z88.1 Allergy status to other antibiotic agents; Z88.2 Allergy status to sulfonamides; Z88.8 Allergy status to other drugs, medicaments and biological substances

== ENCOUNTER → 2019-10-02 | Outpatient (REF) | payer OTHER, SELFPAY ==
[2019-10-02 17:11] LABS: BASO # 0.1 10^3/uL (0.0-0.2); BASO % 1.1 % (0.0-1.0); EOS # 0.3 10^3/uL (0.0-0.5); EOS % 5.1 % (0.0-3.0); HEMATOCRIT 42.8 % (36.0-47.0); HEMOGLOBIN 13.8 g/dl (12.0-15.5); LYMPH # 1.2 10^3/uL (1.5-5.0); LYMPH % 17.8 % (24.0-44.0); MEAN CORPUSCULAR HEMOGLOBIN 29.5 pg (27.0-33.0); MEAN CORPUSCULAR HGB CONC 32.2 g/dl (32.0-36.5); MEAN CORPUSCULAR VOLUME 91.5 fl (80.0-96.0); MONO # 0.4 10^3/uL (0.0-0.8); MONO % 6.6 % (0.0-5.0); NEUTROPHILS # 4.5 10^3/uL (1.5-8.5); NEUTROPHILS % 68.9 % (36.0-66.0); PLATELET COUNT, AUTOMATED 297 10^3/uL (150-450); RED BLOOD COUNT 4.68 10^6/uL (4.00-5.40); WHITE BLOOD COUNT 6.5 10^3/uL (4.0-10.0)
[2019-10-02 17:36] LABS: ALBUMIN 4.1 GM/DL (3.2-5.2); ALT/SGPT 11 U/L (12-78); BILIRUBIN,TOTAL 0.3 MG/DL (0.2-1.0); BLOOD UREA NITROGEN 8 MG/DL (7-18); CARBON DIOXIDE LEVEL 30 MEQ/L (21-32); CHLORIDE LEVEL 107 MEQ/L (98-107); CHOLESTEROL LEVEL 196 MG/DL (<200); CHOLESTEROL RISK RATIO 5.444 (<5); CREATININE FOR GFR 0.78 MG/DL (0.55-1.30); GLOMERULAR FILTRATION RATE > 60.0 (>51); GLUCOSE, FASTING 90 MG/DL (70-100); HDL CHOLESTEROL 36 MG/DL (>40); LDL CHOLESTEROL 129 MG/DL (<100); NON-HDL-C 160 MG/DL; POTASSIUM SERUM 4.3 MEQ/L (3.5-5.1); SODIUM LEVEL 143 MEQ/L (136-145); TOTAL PROTEIN 7.3 GM/DL (6.4-8.2); TRIGLYCERIDES LEVEL 156 MG/DL (<150)
== END ==
LOC: M SFHCPLAZ 15:42
PROVIDERS: ATTEND Nurse Practitioner Family
DX: F31.9 Bipolar disorder, unspecified (principal); E03.9 Hypothyroidism, unspecified; E78.5 Hyperlipidemia, unspecified

== ENCOUNTER → 2019-11-24 | Outpatient (CLI) | payer OTHER ==
[~2019-11-24] MED LIST changes: +BUPIVACAINE HCL 0.25% 30 ML VIAL As Ordered ONE; +NORCO, ANEXSIA 5/325MG TABLET (HYDROcodone/ACETAMINOPHEN) As Ordered ONE; +TRIAMCINOLONE ACETONIDE SUSP 40 MG/ML VIAL (J3301) As Ordered ONE; +diazePAM 2 MG TAB As Ordered ONE
--- NOTE | 2019-11-30 04:46 | ECWPNPC ---
PATIENT NAME: CRYSTAL ARENAS : 1965 GENDER: FEMALE VISIT DATE: 11/24/2019 DISCHARGE DATE: 11/24/19 1519 VISIT LOCKED DATE TIME: PHYSICIAN: STONE LOVE MD RESOURCE: STONE LOVE MD REASON FOR APPOINTMENT 1. TPI HISTORY OF PRESENT ILLNESS HISTORY OF PRESENT ILLNESS: PAIN THE PATIENT DESCRIBES THE PAIN... FALL RISK SCREENING: SCREENING :NO FALLS REPORTED IN THE LAST YEAR CURRENT MEDICATIONS TAKING HYDROXYZINE HCL 25 MG TABLET TAKE ONE TABLET BY MOUTH TWICE A DAY NEEDED FOR ANXIETY ORAL , NOTES: 11/23/2019 AM TAKING TRAZODONE HCL 50 MG TABLET TAKE 1 TABLET BY MOUTH DAILY AT BEDTIME NEEDED FOR SLEEP ORAL , NOTES: 11/23/2019 PM TAKING DULOXETINE HCL 60 MG CAPSULE DELAYED RELEASE PARTICLES 1 CAPSULE ORALLY BID, NOTES: 11/23/2019 AM TAKING OXYBUTYNIN CHLORIDE 5 MG TABLET 1 TABLET ORALLY TWICE A DAY, NOTES: 11/23/2019 PM TAKING LAMOTRIGINE 100 MG TABLET 1 TABLET ORALLY DAILY IN AM, NOTES: 11/23/2019 AM TAKING LAMOTRIGINE 50 MG TABLET DISINTEGRATING 1 1/2 TABLET ON THE TONGUE AND ALLOW TO DISSOLVE ORALLY ONCE A DAY PM, NOTES: 11/23/2019 PM TAKING ZIPRASIDONE HCL 20 MG CAPSULE TAKE 1 CAPSULE BY MOUTH DAILY AT BEDTIME ORAL , NOTES: 11/23/2019 PM TAKING SYNTHROID 88 MCG TABLET 1 TABLET ON AN EMPTY STOMACH IN THE MORNING ORALLY DAILY, NOTES: 11/23/2019 AM TAKING CHOLECALCIFEROL 84670 UNIT CAPSULE 1 CAPSULE ORALLY EVERY 14 DAYS, NOTES: WEEK AGO TAKING TIZANIDINE HCL 2 MG TABLET 1 TABLET NEEDED ORALLY BID, NOTES: 11/23/2019 PM NOT-TAKING DULOXETINE HCL 30 MG CAPSULE DELAYED RELEASE PARTICLES TAKE ONE CAPSULE BY MOUTH EVERY DAY ORAL IN AM NOT-TAKING OXYBUTYNIN CHLORIDE 5 MG TABLET TAKE ONE TABLET BY MOUTH TWICE A DAY ORAL , NOTES: DUPLICATE NOT-TAKING CYMBALTA 60 MG CAPSULE DELAYED RELEASE PARTICLES 1 CAPSULE ORALLY ONCE A DAY, NOTES: DUPLICATE NOT-TAKING CYMBALTA 30 MG CAPSULE DELAYED RELEASE PARTICLES 1 CAPSULE ORALLY ONCE A DAY, NOTES: DUPLICATE NOT-TAKING HYDROCODONE-ACETAMINOPHEN 5-325 MG TABLET (SCHEDULE II DRUG) TAKE ONE TABLET BY MOUTH EVERY 4 TO 6 HOURS NEEDED FOR PAIN MAXIMUM DAILY DOSE 4 ORAL MEDICATION LIST REVIEWED AND RECONCILED WITH THE PATIENT PAST MEDICAL HISTORY DEPRESSION/ ANXIETY- F/U C TLS THYROID DISEASE MRSA (METHICILLIN-RESIST STAPH AUREUS) 2009 RIGHT UNDERARM OCD BIPOLAR-F/U TLS INTERSTITIL CYSTITIS- UROLOGY PTSD- TLS NICOTINE USE DISORDER- 02/2017 SPIROMETRY NORMAL; FEV1 92% MARIJUANA USE DISORDER - [facility] IM ADM 02/2018 ESSENTIAL TREMOR ? BENIGN ETIOLOGY -F/U C DR. SILVA. LUMBAR DISC BULGING L4- S1:02/2018 MRI SPINE 02/2018- MRI CERVICAL SPINE: MINIMAL DEGNERATION SPONDYLOSIS C5-T1. UNCOVERTEBRAL SPURRING NARROWING. RESTLESS LEG SYNDROME OVERACTIVE BLADDER ALLERGIES BACTRIM DS: RASH - ALLERGY CEFTIN: DIARRHEA - SIDE EFFECTS MACRODANTIN: RASH - ALLERGY CLINDAMYCIN HCL: RASH - ALLERGY SURGICAL HISTORY X2 1988 AND 1991 TUBAL LIGATION X 03/29/1992 BILATERAL CARPAL TUNNE, LEFT 1998 AND RIGHT 2000 DOUBLE HERNIA REPAIR AT 6 WEEKS OLD UMBILICUS RESECTION 2003 COLPOSCOPY WITH HUMPHREY 11/01/17 COLONOSCOPY - DR. BATES - 5MM HYPERPLASTIC POLYP 08/2019 FAMILY HISTORY FATHER: ALIVE, ALIVE, DEMENTIA, PARKINSON, THYROID DISEASE MOTHER: , COPD, LUNG CANCER, AORTA ANEURYSM, DIAGNOSED WITH HYPERTENSION SIBLINGS: SISTER, FIBROMYALGIA, CROHNS, ENDROMETRIOSIS, THYROID DISEASE. SHORENCES BROTHER ALIVE AND WELL DAUGHTER(S): DEPRESSION, THYROID DISEASE 1 BROTHER(S) , 1 SISTER(S) . 1 SON(S) , 1 DAUGHTER(S) - HEALTHY. DENIES FAMILY HISTORY OR UROLOGICAL DXMOTHER - BLOOD CLOTS, EMPHYSEMASISTER - THYROID, FIBROMYALGIA, SJOGREN'S SYNDROME, CHRON'SDAUGHTER - THYROID, DEPRESSION. SOCIAL HISTORY GENERAL: TOBACCO USE ARE YOU A:CURRENT SMOKER SMOKES 15-20 PER DAY STARTED AT 16YRS OLD ARE YOU INTERESTED IN QUITTING?THINKING ABOUT QUITTING PREVIOUS QUIT ATTEMPTS?NO. COUNSELED THE PATIENT ON SMOKING CESSATION, EDUCATION [id number]/06/2020 ASSIST (PHARMACOTHERAPY AND COUNSELING) PT PLANS ON USING NICODERM PATCHES & GUM BY 03/03/19 HOW MANY CIGARETTES A DAY DO YOU SMOKE?6-10 HOW SOON AFTER YOU WAKE UP DO YOU SMOKE YOUR FIRST CIGARETTE?6-30 MIN HOW OFTEN DO YOU SMOKE CIGARETTES?EVERY DAY PATIENT COUNSELED ON THE DANGERS OF TOBACCO USE AND URGED TO QUIT:11/24/2019 ADDITIONAL FINDINGS: TOBACCO USERMODERATE CIGARETTE SMOKER (10-19 CIGS/DAY) SMOKING CESSATION INFORMATION GIVEN10/02/2019 OTHERS AT HOME: FROYLAN DAUGHERTY,3 CATS, DOG. HOUSING: RENTS APARTMENT. EDUCATION LEVEL OF EDUCATION:NOT FINISHED COLLEGE DIET: REGULAR. LANGUAGE LANGUAGES SPOKEN:MONGOLIAN DOMESTIC VIOLENCE DO YOU FEEL SAFE IN YOUR ENVIRONMENT?YES BMI CARE GOAL FOLLOW-UP ABOVE NORMAL BMI FOLLOW-UPDIETARY MANAGEMENT EDUCATION, GUIDANCE, AND COUNSELING, DIETARY NEEDS EDUCATION, EXERCISE PROMOTION: STRENGTH TRAINING RECREATIONAL DRUG USE DRUG USE?YES MARIJUANA HOW OFTEN AND HOW MUCH? EVERY 2 DAYS EXERCISE: NO REGULAR EXERCISE. LEARNING BARRIERS / SPECIAL NEEDS CHANGE FROM LAST VISIT?NO BARRIERS TO LEARNING?NO HEARING IMPAIRED?YES [place] BILATERAL BUT WORSE IN THE LEFT VISION IMPAIRED?YES COGNITIVELY IMPAIRED?NO STATES SHE DOESN'T ALWAYS COMPREHEND THINGS WELL. :CORRECTIVE LENSES READINESS TO LEARN?YES LEARNING PREFERENCES?NO LEARNING CAPABILITIES PRESENT?YES EMOTIONAL BARRIERS?NO SPECIAL DEVICES?NO DOOR OPERATOR NEEDED?NO LUNG CANCER SCREENING SMOKING STATUS:CURRENT SMOKER PAIN CLINIC PFS, CLERGY, PUBLIC HEALTH REFERRALS WAS THE PROVIDER NOTIFIED OF ANY PERTINENT INFO?YES HAS THE PATIENT BEEN EDUCATED REGARDING HIS/HER PLAN OF CARE?YES HAS THE PATIENT BEEN EDUCATED REGARDING PAIN, THE RISK FOR PAIN, THE IMPORTANCE OF EFFECTIVE PAIN MANAGEMENT, AND THE PAIN ASSESSMENT PROCESS?YES LATEX QUESTIONNAIRE LATEX ALLERGY : HAVE YOU EVER DEVELOPED ANY TYPE OF REACTION AFTER HANDLING LATEX PRODUCTS SUCH RUBBER GLOVES, CONDOMS, DIAPHRAGMS, BALLOONS, SOCKS, OR UNDERWEAR?NO LATEX ALLERGY : HAVE YOU EVER DEVELOPED ANY TYPE OF REACTION DURING OR AFTER DENTAL APPOINTMENT, VAGINAL/RECTAL EXAMINATION, SURGICAL PROCEDURE, OR ANY OTHER EXPOSURE?NO LATEX RISK : HAVE YOU EVER HAD ANY DIFFICULTY BREATHING OR HIVES AFTER EATING OR HANDLING ANY FRUITS, OR VEGETABLES; SUCH KIWI, BANANAS, STONE FRUITS, OR CHESTNUTSNO LATEX RISK : DO YOU HAVE A PREVIOUS PERSONAL HISTORY OF MORE THAN NINE SURGERIES, SPINA BIFIDA, OR REPEATED CATHERIZATIONS? NO LATEX RISK : ARE YOU FREQUENTLY EXPOSED TO LATEX PRODUCTS IN YOUR OCCUPATION?NO DATE ASKED : 11/24/2019 CAFFEINE CAFFEINE USE?YES COFFEE = 2-3 CUPS PER DAY SODA = 1-2 PER DAY; HAS CUT BACK ADVANCE DIRECTIVE ADVANCE DIRECTIVE DISCUSSED WITH PATIENT:YES 11/24/2019 PATIENT STATES NO ADVANCED DIRECTIVES AND DECLINES INFORMATION ON HCP AT THIS TIME. JS CONGREGATIONAL [id number] NONE MARITAL STATUS: .. ALCOHOL SCREENING DID YOU HAVE A DRINK CONTAINING ALCOHOL IN THE PAST YEAR?YES HOW OFTEN DID YOU HAVE SIX OR MORE DRINKS ON ONE OCCASION IN THE PAST YEAR?NEVER (0 POINTS) HOW MANY DRINKS DID YOU HAVE ON A TYPICAL DAY WHEN YOU WERE DRINKING IN THE PAST YEAR?1 OR 2 (0 POINTS) HOW OFTEN DID YOU HAVE A DRINK CONTAINING ALCOHOL IN THE PAST YEAR?TWO TO FOUR TIMES A MONTH (2 POINTS) POINTS2 INTERPRETATIONNEGATIVE OCCUPATION: DISABLED. SEXUAL HX HAD SEX IN THE LAST 12 MONTHS (VAGINAL, ORAL, OR ANAL)?YES WITHMEN ONLY PREVENTION STRATEGIES DISCUSSED:OTHER USE PROTECTION?NO LMP:POST MENOPAUSE HAVE YOU EVER HAD AN STD?NO HOSPITALIZATION/MAJOR DIAGNOSTIC PROCEDURE SURGERY RELATED MENTAL HEALTH - MULTIPLE REVIEW OF SYSTEMS REVIEWED BY: PROVIDER: . CONSTITUTIONAL: ANY CHANGE IN YOUR MEDICAL CONDITION? NO . CHILLS NO . FEVER NO . INFECTION: DO YOU HAVE NEW INFECTIONS? NO . DO YOU HAVE HISTORY OF MRSA? YES, HISTORY OF IN CYST ON UNDERARM . MUSCULOSKELETAL: ANY NEW PATTERNS OF PAIN OR NUMBNESS? NO . GASTROENTEROLOGY: ANY NEW CHANGE IN BOWEL CONTROL? NO . GENITOURINARY: ANY NEW CHANGE IN BLADDER CONTROL? NO . IS THERE A CHANCE YOU COULD BE ? NO . HEMATOLOGY/LYMPH: DO YOU TAKE ANY BLOOD THINNERS? (FOR EXAMPLE- COUMADIN, PLAVIX, AGGRENOX, PLATEL, PRADAXA, OR XARELTO) NO . WHEN WAS YOUR LAST DOSE? DATE: TIME: . NEUROLOGY: HAVE YOU FALLEN IN THE PAST 12 MONTHS? NO . ANY NEW EXTREMITY NUMBNESS OR WEAKNESS? YES, NUMBNESS TO THE OUTSIDE OF HER LEFT LEG AND SOME WEAKNESS . CARDIOLOGY: DO YOU HAVE A PACEMAKER OR DEFIBRILLATOR? NO . RESPIRATORY: HAVE YOU BEEN SICK IN THE PAST WEEK? NO . FEVER NO . FLU LIKE SYMPTOMS? NO . COUGH NO . INTEGUMENTARY: DO YOU HAVE ANY RASHES OR OPEN SORES? NO . ALLERGIC/IMMUNO: ARE YOU ALLERGIC TO IV DYE? NO . ANY NEW ALLERGIES? NO . PSYCHIATRIC: DO YOU HAVE THOUGHTS OF HURTING YOURSELF OR SOMEONE ELSE? NO . ARE YOU ABUSED, NEGLECTED, OR IN AN UNSAFE ENVIRONMENT? NO . ENDOCRINOLOGY: ARE YOU DIABETIC? NO . OTHER: DO YOU NEED ANY PRESCRIPTIONS? NO . IF YES, PLEASE LIST: ____ . ANY NEW PROBLEMS WITH YOUR MEDICATIONS? NO . WHEN DID YOU LAST EAT? ____11/24/2019 0630 . WHEN DID YOU LAST DRINK? ____11/24/2019 1115 . WHAT DID YOU LAST DRINK? ____G[place] . NAME OF PERSON DRIVING YOU HOME? ____[facility] . DO YOU HAVE ANY OTHER QUESTIONS OR CONCERNS NO . VITAL SIGNS WT 179.2 LBS, HT 63 IN, BMI 31.74 INDEX, BP 127/69 MM HG, HR 64 /MIN, RR 18 /MIN, TEMP 97.6 F, OXYGEN SAT % 97%, SAFE IN ENV? (Y/N) YES, NA INITIALS AW 1318, REVIEWED BY: JS. ASSESSMENTS MYALGIA, OTHER SITE - M79.18 (PRIMARY) PROCEDURES PN TRIGGER POINT INJECTION WITH STEROIDS PRE PROCEDURE DIAGNOSIS 1. MYALGIA 2. PAIN AT BILATERAL LUMBAR AREA. POST PROCEDURE DIAGNOSIS 1. MYALGIA 2. PAIN AT BILATERAL LUMBAR AREA. PROCEDURE TRIGGER POINT INJECTION AT RIGHT AND LEFT LUMBAR AREA. SURGEON DR. STONE LOVE COMPUTER SYSTEMS ARCHITECT NONE ANESTHESIA LOCAL PRE PROCEDURE NOTE THE PATIENT HAS A HISTORY OF CHRONIC PAIN AT THE RIGHT AND LEFT LOW BACK AREA. I EVALUATED THE PATIENT AND REVIEWED THE CHART. THERE IS EVIDENCE OF BANDS OF TISSUE WITH RESTRICTION OF MOVEMENT AND PRESENCE OF TRIGGER POINT AT THE AFFECTED AREA. I WENT OVER THE RISKS, ALTERNATIVES, AND BENEFITS ASSOCIATED WITH THIS PROCEDURE. THE PATIENT WOULD LIKE TO PROCEED AND GIVES CONSENT TO PERFORM THE PROCEDURE. THE PATIENT DENIES UNEXPLAINABLE WEIGHT LOSS, FEVER, CHILLS, OR NEW CHANGES IN URINARY OR BOWEL CONTROL DESCRIPTION OF PROCEDURE THE PATIENT WAS BROUGHT TO THE PROCEDURE ROOM AND PLACED IN THE SITTING POSITION. THE AREA WAS CLEANED WITH ALCOHOL. THE PROCEDURE WAS DONE USING ASEPTIC STERILE TECHNIQUE. I CHECKED LATERALITY AND THE LEVEL WHERE THE PROCEDURE WAS GOING TO BE PERFORMED WITH THE PATIENT AND THE SUPPORTING STAFF AT THE MOMENT OF THE TIME OUT IN THE PROCEDURE ROOM. USING A 25-GAUGE NEEDLE, TRIGGER POINTS WERE INJECTED AT THE RIGHT AND LEFT LOW BACK AREA WITH A TOTAL OF 40 ML OF BUPIVACAINE 0.25% AND KENALOG 40 MG. THERE WAS NO EVIDENCE OF BLOOD, PARESTHESIA OR CEREBROSPINAL FLUID DURING THE PROCEDURE. THE PATIENT WAS SENT TO THE RECOVERY ROOM. THE PATIENT WAS MOVING THE EXTREMITIES AND DOING WELL. THERE WAS NO COMPLICATION DURING THE PROCEDURE POST PROCEDURE NOTE THE PATIENT WILL BE SEEN IN A FOLLOW UP IN THE NEXT FEW WEEKS TO SEE HOW THIS INJECTION IS HELPING WITH HER PAIN. I AM LOOKING FOR LONG LASTING PAIN RELIEF FOR THE PATIENT WITH THIS INJECTION. INSTRUCTIONS WERE GIVEN, QUESTIONS WERE ANSWERED, AND THE PATIENT EXPRESSED UNDERSTANDING AND AGREES WITH THE PLAN. I, CHELI MEDELLIN, DOCUMENTED THE ABOVE INFORMATION ACTING A SCRIBE FOR DR. LOVE. I HAVE REVIEWED THE ABOVE DOCUMENT, WRITTEN BY CHELI MEDELLIN SCRIBDion AND I VERIFY THAT IT IS ACCURATE. PROCEDURE CODES 88884 INJ TRIGGER POINT 09/21 [facility] [place] FOLLOW UP 3 WEEKS ELECTRONICALLY SIGNED BY STONE LOVE MD, MD ON 11/29/2019 AT 12:34 PM EDT DISCLAIMER : THIS IS A VISIT SUMMARY EXTRACTED FROM THE [employer] CHART. IT IS NOT A COPY OF THE [facility] PROGRESS NOTE. TANJA
== END ==
LOC: M PAIN 13:30
PROVIDERS: ATTEND Anesthesiology
DX: M79.18 Myalgia, other site (principal)
CPT/HCPCS: 20552; J3301

== ENCOUNTER → 2020-03-19 | Outpatient (CLI) | payer OTHER ==
[~2020-03-19] MED LIST changes: -BUPIVACAINE HCL 0.25% 30 ML VIAL As Ordered ONE; -NORCO, ANEXSIA 5/325MG TABLET (HYDROcodone/ACETAMINOPHEN) As Ordered ONE; -TRIAMCINOLONE ACETONIDE SUSP 40 MG/ML VIAL (J3301) As Ordered ONE; -diazePAM 2 MG TAB As Ordered ONE
--- NOTE | 2020-04-02 05:41 | ECWPNPC ---
PATIENT NAME: CRYSTAL ARENAS : 1965 GENDER: FEMALE VISIT DATE: 03/19/2020 DISCHARGE DATE: 03/19/20 1458 VISIT LOCKED DATE TIME: PHYSICIAN: VANIA HOSKINS RESOURCE: VANIA HOSKINS REASON FOR APPOINTMENT 1. LOW BACK PAIN [phone] VIA PHONE HISTORY OF PRESENT ILLNESS GENERAL: PATIENT IS AGREEABLE TO TELEPHONE VISIT TODAY. STATES SHE CONTINUES TO DO BETTER SINCE HAVING TRIGGER POINT INJECTIONS. HAVING DAYS WHERE HER PAIN LEVEL IS 0. WE DISCUSSED TREATMENT PLAN. PATIENT WOULD LIKE TO HOLD OFF ON ANY PROCEDURES AND GIVE US A CALL SHOULD HER PAIN ESCALATE FOR REEVALUATION IN CLINIC. -. FALL RISK SCREENING: SCREENING :NO FALLS REPORTED IN THE LAST YEAR PAIN SCREENING: PATIENT HAS A COMPLAINT OF ACUTE OR CHRONIC PAIN :YES LOCATION OF PAIN:LOW BACK INTENSITY OF PAIN (SCALE OF 1 TO 10):5 PAIN RATED A RANGE 0-6 SINCE LAST VISIT WHAT DOES YOUR PAIN FEEL LIKE:THROBBING DURATION:CONSTANT PAIN IS INCREASED BY:ACTIVITIES, PROLONGED STANDING PAIN IS DECREASED BY:USE OF PAIN MEDICATIONS MASSAGE CHAIR NURSING NOTE: -. PAIN CENTER INTAKE QUESTIONS: DO YOU HAVE A HISTORY OF MRSA? :YES HISTORY OF MRSA IN [place], NOT CURRENT DO YOU TAKE A BLOOD THINNERS? :NO DO YOU HAVE ANY BLEEDING DISORDERS? :NO ANY NEW NUMBNESS OR WEAKNESS IN YOUR LEGS OR ARMS? :NO ANY PACEMAKER,DEFIBRILLATOR, OR DORSAL COLUMN STIMULATOR? :NO DO YOU HAVE ANY RASHES OR OPEN SORES? :YES MOSQUITO BITES ON ARMS ARE YOU ALLERGIC TO IV DYE? :NO ARE YOU DIABETIC? :NO ANY NEW PROBLEMS WITH YOUR MEDICATIONS? :NO HAVE YOU RECEIVED A VACCINE IN THE PAST 30 DAYS? :NO DO YOU PLAN TO RECEIVE A VACCINE IN THE NEXT 21 DAYS? :NO DO YOU NEED ANY PRESCRIPTION? :NO DO YOU TAKE ANY IMMUNOSUPPRESSIVE MEDICATIONS? :NO IS THERE A CHANCE YOU COULD BE ? :NO ARE YOU BREAST FEEDING? :NO CURRENT MEDICATIONS TAKING HYDROXYZINE HCL 25 MG TABLET TAKE ONE TABLET BY MOUTH TWICE A DAY NEEDED FOR ANXIETY ORAL , NOTES: 11/23/2019 AM TAKING TRAZODONE HCL 50 MG TABLET TAKE 1 TABLET BY MOUTH DAILY AT BEDTIME NEEDED FOR SLEEP ORAL , NOTES: 11/23/2019 PM TAKING DULOXETINE HCL 60 MG CAPSULE DELAYED RELEASE PARTICLES 1 CAPSULE ORALLY BID, NOTES: 11/23/2019 AM TAKING LAMOTRIGINE 100 MG TABLET 1 TABLET ORALLY DAILY IN AM, NOTES: 11/23/2019 AM TAKING LAMOTRIGINE 50 MG TABLET DISINTEGRATING 1 1/2 TABLET ON THE TONGUE AND ALLOW TO DISSOLVE ORALLY ONCE A DAY PM, NOTES: 11/23/2019 PM TAKING ZIPRASIDONE HCL 20 MG CAPSULE TAKE 1 CAPSULE BY MOUTH DAILY AT BEDTIME ORAL , NOTES: 11/23/2019 PM TAKING SYNTHROID 88 MCG TABLET 1 TABLET ON AN EMPTY STOMACH IN THE MORNING ORALLY DAILY, NOTES: 11/23/2019 AM TAKING TIZANIDINE HCL 4 MG TABLET 1 TABLET NEEDED ORALLY BID, NOTES: 11/23/2019 PM TAKING OXYBUTYNIN CHLORIDE 5 MG TABLET 1 TABLET ORALLY TWICE A DAY, NOTES: 11/23/2019 PM NOT-TAKING CHOLECALCIFEROL 17468 UNIT CAPSULE 1 CAPSULE ORALLY EVERY 14 DAYS, NOTES: WEEK AGO NOT-TAKING DULOXETINE HCL 30 MG CAPSULE DELAYED RELEASE PARTICLES TAKE ONE CAPSULE BY MOUTH EVERY DAY ORAL IN AM NOT-TAKING OXYBUTYNIN CHLORIDE 5 MG TABLET TAKE ONE TABLET BY MOUTH TWICE A DAY ORAL , NOTES: DUPLICATE NOT-TAKING CYMBALTA 60 MG CAPSULE DELAYED RELEASE PARTICLES 1 CAPSULE ORALLY ONCE A DAY, NOTES: DUPLICATE NOT-TAKING CYMBALTA 30 MG CAPSULE DELAYED RELEASE PARTICLES 1 CAPSULE ORALLY ONCE A DAY, NOTES: DUPLICATE NOT-TAKING HYDROCODONE-ACETAMINOPHEN 5-325 MG TABLET (SCHEDULE II DRUG) TAKE ONE TABLET BY MOUTH EVERY 4 TO 6 HOURS NEEDED FOR PAIN MAXIMUM DAILY DOSE 4 ORAL MEDICATION LIST REVIEWED AND RECONCILED WITH THE PATIENT PAST MEDICAL HISTORY DEPRESSION/ ANXIETY- F/U C TLS THYROID DISEASE MRSA (METHICILLIN-RESIST STAPH AUREUS) 2008 RIGHT UNDERARM OCD BIPOLAR-F/U TLS INTERSTITIL CYSTITIS- UROLOGY PTSD- TLS NICOTINE USE DISORDER- 02/2017 SPIROMETRY NORMAL; FEV1 92% MARIJUANA USE DISORDER - [facility] IM ADM 02/2018 ESSENTIAL TREMOR ? BENIGN ETIOLOGY -F/U C DR. SILVA. LUMBAR DISC BULGING L4- S1:02/2018 MRI SPINE 02/2018- MRI CERVICAL SPINE: MINIMAL DEGNERATION SPONDYLOSIS C5-T1. UNCOVERTEBRAL SPURRING NARROWING. RESTLESS LEG SYNDROME OVERACTIVE BLADDER ALLERGIES BACTRIM DS: RASH - ALLERGY CEFTIN: DIARRHEA - SIDE EFFECTS MACRODANTIN: RASH - ALLERGY CLINDAMYCIN HCL: RASH - ALLERGY SURGICAL HISTORY X2 1988 AND 1991 TUBAL LIGATION X 03/29/1992 BILATERAL CARPAL TUNNE, LEFT 1998 AND RIGHT 2000 DOUBLE HERNIA REPAIR AT 6 WEEKS OLD UMBILICUS RESECTION 2003 COLPOSCOPY WITH HUMPHREY 11/01/17 COLONOSCOPY - DR. BATES - 5MM HYPERPLASTIC POLYP 08/2019 FAMILY HISTORY FATHER: ALIVE, ALIVE, DEMENTIA, PARKINSON, THYROID DISEASE MOTHER: , COPD, LUNG CANCER, AORTA ANEURYSM, DIAGNOSED WITH HYPERTENSION SIBLINGS: SISTER, FIBROMYALGIA, CROHNS, ENDROMETRIOSIS, THYROID DISEASE. SHORENCES BROTHER ALIVE AND WELL DAUGHTER(S): DEPRESSION, THYROID DISEASE 1 BROTHER(S) , 1 SISTER(S) . 1 SON(S) , 1 DAUGHTER(S) - HEALTHY. DENIES FAMILY HISTORY OR UROLOGICAL DXMOTHER - BLOOD CLOTS, EMPHYSEMASISTER - THYROID, FIBROMYALGIA, SJOGREN'S SYNDROME, CHRON'SDAUGHTER - THYROID, DEPRESSION. SOCIAL HISTORY GENERAL: TOBACCO USE ARE YOU A:CURRENT SMOKER SMOKES 15-20 PER DAY STARTED AT 16YRS OLD ARE YOU INTERESTED IN QUITTING?THINKING ABOUT QUITTING PREVIOUS QUIT ATTEMPTS?NO. COUNSELED THE PATIENT ON SMOKING CESSATION, EDUCATION [id number]/29/2020 ASSIST (PHARMACOTHERAPY AND COUNSELING) PT PLANS ON USING NICODERM PATCHES & GUM BY 03/03/19 HOW MANY CIGARETTES A DAY DO YOU SMOKE?6-10 HOW SOON AFTER YOU WAKE UP DO YOU SMOKE YOUR FIRST CIGARETTE?6-30 MIN HOW OFTEN DO YOU SMOKE CIGARETTES?EVERY DAY PATIENT COUNSELED ON THE DANGERS OF TOBACCO USE AND URGED TO QUIT:02/05/2020 ADDITIONAL FINDINGS: TOBACCO USERMODERATE CIGARETTE SMOKER (10-19 CIGS/DAY) SMOKING CESSATION INFORMATION GIVEN02/05/2020 LATEX QUESTIONNAIRE LATEX ALLERGY : HAVE YOU EVER DEVELOPED ANY TYPE OF REACTION AFTER HANDLING LATEX PRODUCTS SUCH RUBBER GLOVES, CONDOMS, DIAPHRAGMS, BALLOONS, SOCKS, OR UNDERWEAR?NO LATEX ALLERGY : HAVE YOU EVER DEVELOPED ANY TYPE OF REACTION DURING OR AFTER DENTAL APPOINTMENT, VAGINAL/RECTAL EXAMINATION, SURGICAL PROCEDURE, OR ANY OTHER EXPOSURE?NO DATE ASKED : 11/24/2019 LATEX RISK : HAVE YOU EVER HAD ANY DIFFICULTY BREATHING OR HIVES AFTER EATING OR HANDLING ANY FRUITS, OR VEGETABLES; SUCH KIWI, BANANAS, STONE FRUITS, OR CHESTNUTSNO LATEX RISK : DO YOU HAVE A PREVIOUS PERSONAL HISTORY OF MORE THAN NINE SURGERIES, SPINA BIFIDA, OR REPEATED CATHERIZATIONS? NO LATEX RISK : ARE YOU FREQUENTLY EXPOSED TO LATEX PRODUCTS IN YOUR OCCUPATION?NO LUNG CANCER SCREENING SMOKING STATUS:CURRENT SMOKER BMI CARE GOAL FOLLOW-UP ABOVE NORMAL BMI FOLLOW-UPDIETARY MANAGEMENT EDUCATION, GUIDANCE, AND COUNSELING, DIETARY NEEDS EDUCATION, EXERCISE PROMOTION: STRENGTH TRAINING ALCOHOL SCREENING DID YOU HAVE A DRINK CONTAINING ALCOHOL IN THE PAST YEAR?YES HOW OFTEN DID YOU HAVE SIX OR MORE DRINKS ON ONE OCCASION IN THE PAST YEAR?NEVER (0 POINTS) HOW MANY DRINKS DID YOU HAVE ON A TYPICAL DAY WHEN YOU WERE DRINKING IN THE PAST YEAR?1 OR 2 (0 POINTS) HOW OFTEN DID YOU HAVE A DRINK CONTAINING ALCOHOL IN THE PAST YEAR?TWO TO FOUR TIMES A MONTH (2 POINTS) POINTS2 INTERPRETATIONNEGATIVE RECREATIONAL DRUG USE DRUG USE?YES MARIJUANA HOW OFTEN AND HOW MUCH? EVERY 2 DAYS CAFFEINE CAFFEINE USE?YES COFFEE = 2-3 CUPS PER DAY SODA = 1-2 PER DAY; HAS CUT BACK SEXUAL HX HAD SEX IN THE LAST 12 MONTHS (VAGINAL, ORAL, OR ANAL)?YES WITHMEN ONLY PREVENTION STRATEGIES DISCUSSED:OTHER USE PROTECTION?NO LMP:POST MENOPAUSE HAVE YOU EVER HAD AN STD?NO CHRISTIANITY [id number] NONE LANGUAGE LANGUAGES SPOKEN:CHILEAN EDUCATION LEVEL OF EDUCATION:NOT FINISHED COLLEGE LEARNING BARRIERS / SPECIAL NEEDS CHANGE FROM LAST VISIT?NO BARRIERS TO LEARNING?NO HEARING IMPAIRED?YES [place] BILATERAL BUT WORSE IN THE LEFT VISION IMPAIRED?YES :CORRECTIVE LENSES COGNITIVELY IMPAIRED?NO STATES SHE DOESN'T ALWAYS COMPREHEND THINGS WELL. READINESS TO LEARN?YES LEARNING PREFERENCES?NO LEARNING CAPABILITIES PRESENT?YES EMOTIONAL BARRIERS?NO SPECIAL DEVICES?NO PARTS FABRICATOR NEEDED?NO DOMESTIC VIOLENCE DO YOU FEEL SAFE IN YOUR ENVIRONMENT?YES OCCUPATION: DISABLED. DIET: REGULAR. EXERCISE: NO REGULAR EXERCISE. MARITAL STATUS: .. OTHERS AT HOME: FROYLAN DAUGHERTY,3 CATS, DOG. PAIN CLINIC PFS, CLERGY, PUBLIC HEALTH REFERRALS WAS THE PROVIDER NOTIFIED OF ANY PERTINENT INFO?YES HAS THE PATIENT BEEN EDUCATED REGARDING HIS/HER PLAN OF CARE?YES HAS THE PATIENT BEEN EDUCATED REGARDING PAIN, THE RISK FOR PAIN, THE IMPORTANCE OF EFFECTIVE PAIN MANAGEMENT, AND THE PAIN ASSESSMENT PROCESS?YES HOUSING: RENTS APARTMENT. ADVANCE DIRECTIVE ADVANCE DIRECTIVE DISCUSSED WITH PATIENT:YES 11/24/2019 PATIENT STATES NO ADVANCED DIRECTIVES AND DECLINES INFORMATION ON HCP AT THIS TIME. JS HOSPITALIZATION/MAJOR DIAGNOSTIC PROCEDURE SURGERY RELATED MENTAL HEALTH - MULTIPLE REVIEW OF SYSTEMS CONSTITUTIONAL: ANY RECENT FEVER NO . CHILLS NO . WEIGHT CHANGE OF UNKNOWN REASONS NO . GASTROENTEROLOGY: NEW UNEXPLAINABLE CHANGES IN BOWEL CONTROL NO . CONSTIPATION NO . GENITOURINARY: ANY NEW CHANGE IN BLADDER CONTROL? NO . NEUROLOGY: NEW ONSET DIZZINESS OR NEUROLOGICAL CHANGES NOT MENTIONED NO . NEW NUMBNESS OR PAIN PATTERNS NOT MENTIONED AND PERTINENT TO TODAY'S VISIT NO . CARDIOLOGY: NEW CHEST PRESSURE NO . NEW CHEST PAIN NO . RESPIRATORY: UNEXPLAINABLE COUGH NO . NEW SHORTNESS OF BREATH NO . ASSESSMENTS MYALGIA, OTHER SITE - M79.18 (PRIMARY) TREATMENT MYALGIA, OTHER SITE NOTES: CONTINUE HOME EXERCISE AND STRETCHING. PATIENT WILL CALL IF SHE NEEDS A FOLLOW-UP. TOTAL TIME SPENT DURING TELEPHONE VISIT WAS APPROXIMATELY 11 MINUTES. DISPOSITION & COMMUNICATION FOLLOW UP PATIENT WILL CALL WHEN FOLLOW-UP NEEDED (REASON: LOW BACK PAIN) ELECTRONICALLY SIGNED BY COURT MULTANI ON 04/01/2020 AT 03:05 PM EDT DISCLAIMER : THIS IS A VISIT SUMMARY EXTRACTED FROM THE [employer] CHART. IT IS NOT A COPY OF THE [employer] PROGRESS NOTE. TANJA
== END ==
LOC: M PAIN 13:30
PROVIDERS: ATTEND Nurse Practitioner Family
DX: M79.18 Myalgia, other site (principal)

== ENCOUNTER → 2020-05-01 | Outpatient (POV) | payer OTHER ==
[~2020-05-01] MED LIST changes: +COLA100C5 PO; +D3-5CAP; +SIME180C PO; +TIZA4TAB4
== END ==
LOC: M PAIN 09:00
PROVIDERS: ATTEND Nurse Practitioner Family
DX: M54.2 Cervicalgia (principal); M79.18 Myalgia, other site

== ENCOUNTER 2020-06-24 18:29 | Emergency (ER) | payer OTHER ==
[~2020-06-24] VITALS: Ht 160 cm; Wt 78.6 kg
[~2020-06-24 18:29] MED LIST changes: -COLA100C5 PO; -D3-5CAP; -SIME180C PO; -TIZA4TAB4
[2020-06-24] MEDS ORDERED: D3-5CAP (18:39)
[2020-06-24] MEDS ORDERED: TIZA4TAB4 (18:39)
--- NOTE | 2020-06-24 22:49 | REPVR ---
PROCEDURE INFORMATION: Exam: XR Abdomen, 1 View Exam date and time: 06/24/20 (10:07pm) Age: 55 years old Clinical indication: Reported constipation TECHNIQUE: Imaging protocol: XR of the abdomen. Views: Frontal supine view of the abdomen. 1 View. COMPARISON: No relevant prior studies available FINDINGS: A single frontal view of the abdomen demonstrates a nonspecific and non-obstructed bowel gas pattern pattern. Air-filled, nondilated small and large bowel loops are noted. The amount of fecal matter is not excessive. Prominent right hepatic lobe. The visualized lung bases appear clear. Multiple small pelvic phleboliths. IMPRESSION: Nonspecific and non-obstructed bowel gas pattern. The amount of fecal matter does not appear excessive. Electronically signed by: Michelle Montoya On 06/24/2020 22:49:27 PM
[2020-06-24] MEDS ORDERED: DOCUSATE SODIUM 100 MG CAP PO ONE (23:15)
[2020-06-24] MEDS ORDERED: DICYCLOMINE 10 MG CAP PO ONE (23:15)
[2020-06-25] MEDS ORDERED: SIME180C PO (00:10)
[2020-06-25] MEDS ORDERED: COLA100C5 PO (00:10)
[2020-06-25 00:20] VITALS: BP 145/69
== END 2020-06-25 00:24 | disposition home or self-care (01) ==
LOC: M ED 18:29
DX: R10.9 Unspecified abdominal pain (principal); R19.4 Change in bowel habit; J44.9 Chronic obstructive pulmonary disease, unspecified; F17.200 Nicotine dependence, unspecified, uncomplicated; Z88.1 Allergy status to other antibiotic agents; Z88.2 Allergy status to sulfonamides; Z88.8 Allergy status to other drugs, medicaments and biological substances; Z79.899 Other long term (current) drug therapy

== ENCOUNTER → 2020-06-28 | Outpatient (REF) | payer OTHER ==
[~2020-06-28] MED LIST changes: +COLA100C5 PO; +D3-5CAP; +SIME180C PO; +TIZA4TAB4
[2020-06-28 14:24] LABS: APPEARANCE, URINE HAZY (CLEAR); BACTERIA, URINE AUTO NEGATIVE (NEGATIVE); BILIRUBIN, URINE AUTO NEGATIVE (NEGATIVE); BLOOD, URINE BLOOD NEGATIVE (NEGATIVE); CALCIUM OXALATE CRYSTALS MODERATE; COLOR, URINE YELLOW (YELLOW); GLUCOSE, URINE (UA) AUTO NEGATIVE (NEGATIVE); KETONE, URINE AUTO TRACE mg/dL (NEGATIVE); LEUKOCYTE ESTERASE, URINE AUTO NEGATIVE (NEGATIVE); MUCUS, URINE SMALL (NEGATIVE); NITRITE, URINE AUTO NEGATIVE (NEGATIVE); PROTEIN, URINE AUTO NEGATIVE (NEGATIVE); RBC, URINE AUTO 5 /HPF (0-3); SPECIFIC GRAVITY URINE AUTO 1.019 (1.002-1.035); SQUAMOUS EPITHELIAL CELL UR AU 2 /HPF (0-6); UROBILINOGEN, URINE AUTO 0.2 mg/dL (0.0-2.0); WBC, URINE AUTO 1 /HPF (0-3)
== END ==
LOC: M SFHCPLAZ 13:05
PROVIDERS: ATTEND Nurse Practitioner Family
DX: N39.0 Urinary tract infection, site not specified (principal)

== ENCOUNTER → 2020-07-02 | Outpatient (CLI) | payer OTHER ==
[2020-07-02 15:17] LABS: ALT/SGPT 16 U/L (12-78); BILIRUBIN,TOTAL 0.4 MG/DL (0.2-1.0); BLOOD UREA NITROGEN 12 MG/DL (7-18); CALCIUM LEVEL 9.6 MG/DL (8.5-10.1); CARBON DIOXIDE LEVEL 31 MEQ/L (21-32); CHLORIDE LEVEL 106 MEQ/L (98-107); CHOLESTEROL LEVEL 193 MG/DL (<200); CHOLESTEROL RISK RATIO 4.707 (<5); CREATININE FOR GFR 0.85 MG/DL (0.55-1.30); FREE T4 1.12 NG/DL (0.76-1.46); GLOMERULAR FILTRATION RATE > 60.0 (>51); GLUCOSE, FASTING 92 MG/DL (70-100); HDL CHOLESTEROL 41 MG/DL (>40); LDL CHOLESTEROL 127 MG/DL (<100); NON-HDL-C 152 MG/DL; POTASSIUM SERUM 4.1 MEQ/L (3.5-5.1); SODIUM LEVEL 141 MEQ/L (136-145); TOTAL PROTEIN 6.8 GM/DL (6.4-8.2); TRIGLYCERIDES LEVEL 126 MG/DL (<150)
[2020-07-02 15:24] LABS: TOTAL 25(OH) VITAMIN D 44.6 NG/ML (30.0-100.0)
[2020-07-02 15:27] LABS: HEMOGLOBIN A1c 5.2 %
== END ==
LOC: M LAB 13:50
PROVIDERS: ATTEND Nurse Practitioner Family
DX: F31.9 Bipolar disorder, unspecified (principal); E78.5 Hyperlipidemia, unspecified; E03.9 Hypothyroidism, unspecified; E55.9 Vitamin D deficiency, unspecified

== ENCOUNTER 2020-09-27 14:30 | Emergency (ER) | payer OTHER ==
[~2020-09-27] VITALS: Ht 157.5 cm; Wt 81.8 kg
--- NOTE | 2020-09-27 15:22 | REP ---
INDICATION: Altered Mental Status COMPARISON: None. TECHNIQUE: Axial noncontrast images from the skull base to the thoracic inlet with coronal reformations. This CT examination was performed using the following dose reduction techniques: Automated exposure control, adjustment of mA and/or kv according to the patient's size, and use of iterative reconstruction technique. FINDINGS: Age-related atrophy and microvascular ischemic changes are appreciated. The ventricles and sulci are symmetric. Lomas-white differentiation is maintained. There is no evidence for acute intracranial hemorrhage, mass/mass effect, pathology or infarction. No extra-axial fluid collection. Calvarium is intact. Paranasal sinuses and mastoid air cells are clear. IMPRESSION: Age related atrophy and microvascular ischemic changes. No acute intracranial hemorrhage, infarction, or mass/mass effect. <Electronically signed by Arnol Byrd > 09/27/20 [id number]
[2020-09-27 15:42] LABS: BASO # 0.1 10^3/uL (0.0-0.2); BASO % 1.1 % (0.0-1.0); EOS # 0.3 10^3/uL (0.0-0.5); EOS % 5.1 % (0.0-3.0); HEMATOCRIT 42.2 % (36.0-47.0); HEMOGLOBIN 13.9 g/dl (12.0-15.5); LYMPH # 1.3 10^3/uL (1.5-5.0); LYMPH % 20.1 % (24.0-44.0); MEAN CORPUSCULAR HGB CONC 32.9 g/dl (32.0-36.5); MEAN CORPUSCULAR VOLUME 91.1 fl (80.0-96.0); MONO # 0.4 10^3/uL (0.0-0.8); MONO % 6.8 % (0.0-5.0); NEUTROPHILS # 4.2 10^3/uL (1.5-8.5); NEUTROPHILS % 66.6 % (36.0-66.0); PLATELET COUNT, AUTOMATED 243 10^3/uL (150-450); RED BLOOD COUNT 4.63 10^6/uL (4.00-5.40); WHITE BLOOD COUNT 6.3 10^3/uL (4.0-10.0)
--- NOTE | 2020-09-27 15:55 | REP ---
INDICATION: Altered Mental Status COMPARISON: 12/26/2013 TECHNIQUE: Portable AP view of the chest FINDINGS: The mediastinum and cardiac silhouette are stable and within normal limits for portable technique. The lung perez are clear without acute consolidation, effusion, or pneumothorax. Very minimal left basilar atelectasis cannot be excluded. Skeletal structures are intact.. IMPRESSION: No acute cardiopulmonary process appreciated. Questionable trace left basilar atelectasis. <Electronically signed by Arnol Byrd > 09/27/20 [id number]
[2020-09-27 16:31] LABS: ACETAMINOPHEN LEVEL < 2.0 UG/ML (10.0-30.0); ALBUMIN 4.1 GM/DL (3.2-5.2); ALT/SGPT 17 U/L (12-78); BILIRUBIN,DIRECT < 0.1 MG/DL (0.0-0.2); BILIRUBIN,TOTAL 0.3 MG/DL (0.2-1.0); BLOOD UREA NITROGEN 10 MG/DL (7-18); CALCIUM LEVEL 9.2 MG/DL (8.5-10.1); CARBON DIOXIDE LEVEL 31 MEQ/L (21-32); CHLORIDE LEVEL 105 MEQ/L (98-107); CK-MB VALUE MASS 1.6 NG/ML (<3.6); CPK CREATINE PHOSPHOKINASE 98 U/L (26-192); CREATININE FOR GFR 0.98 MG/DL (0.55-1.30); ETHYL ALCOHOL (ETHANOL) < 0.003 % (0.000-0.010); GLOMERULAR FILTRATION RATE > 60.0 (>51); GLUCOSE, FASTING 105 MG/DL (70-100); MB/CK RELATIVE INDEX 1.63 (< OR =4); POTASSIUM SERUM 3.9 MEQ/L (3.5-5.1); SALICYLATE LEVEL 5.5 MG/DL (5.0-30.0); SODIUM LEVEL 141 MEQ/L (136-145); TOTAL PROTEIN 6.9 GM/DL (6.4-8.2); TROPONIN I < 0.02 NG/ML (< 0.10)
[2020-09-27 17:44] LABS: AMPHETAMINES LEVEL URINE NEGATIVE (NEGATIVE); BARBITURATES URINE NEGATIVE (NEGATIVE); BENZODIAZEPINES URINE NEGATIVE (NEGATIVE); CANNABINOIDS URINE POSITIVE (NEGATIVE); COCAINE METABOLITE URINE NEGATIVE (NEGATIVE); METHADONE URINE NEGATIVE (NEGATIVE); OPIATES URINE NEGATIVE (NEGATIVE); PHENCYCLIDINE URINE NEGATIVE (NEGATIVE)
[2020-09-27 18:00] VITALS: BP 129/60
--- NOTE | 2020-09-27 21:53 | ECGEPIP ---
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
== END 2020-09-27 18:13 | disposition home or self-care (01) ==
LOC: M ED 14:30
DX: R41.82 Altered mental status, unspecified (principal); Z53.20 Procedure and treatment not carried out because of patient's decision for unspecified reasons; R00.1 Bradycardia, unspecified; J44.9 Chronic obstructive pulmonary disease, unspecified; F31.9 Bipolar disorder, unspecified; F20.9 Schizophrenia, unspecified; Z79.899 Other long term (current) drug therapy; Z88.2 Allergy status to sulfonamides; Z88.1 Allergy status to other antibiotic agents; Z88.8 Allergy status to other drugs, medicaments and biological substances
CPT/HCPCS: 36415; 70450; 71045; 80048; 80076; 80307; 81001; 82140; 82550; 82553; 83605; 84443; 85025; 93005; 93041; 94760; 99285; G0480

== ENCOUNTER 2020-09-29 17:32 | Emergency (ER) | payer OTHER ==
[~2020-09-29] VITALS: Ht 160 cm; Wt 80.8 kg
[2020-09-29] MEDS ORDERED: NS 1,000 ML IV ONE (17:45)
[2020-09-29 17:53] VITALS: BP 157/77
--- NOTE | 2020-09-29 18:07 | REP ---
INDICATION: Altered Mental Status COMPARISON: 09/27/2020 TECHNIQUE: Portable AP view of the chest FINDINGS: The mediastinum and cardiac silhouette are stable and within normal limits for portable technique. The lung perez are clear without acute consolidation, effusion, or pneumothorax. Skeletal structures are intact. IMPRESSION: No acute cardiopulmonary process appreciated. <Electronically signed by Arnol Byrd > 09/29/20 [id number]
[2020-09-29 18:32] LABS: BASO # 0.1 10^3/uL (0.0-0.2); EOS # 0.2 10^3/uL (0.0-0.5); EOS % 3.4 % (0.0-3.0); HEMATOCRIT 44.3 % (36.0-47.0); HEMOGLOBIN 14.2 g/dl (12.0-15.5); LYMPH # 1.1 10^3/uL (1.5-5.0); LYMPH % 18.9 % (24.0-44.0); MEAN CORPUSCULAR HEMOGLOBIN 29.3 pg (27.0-33.0); MEAN CORPUSCULAR HGB CONC 32.1 g/dl (32.0-36.5); MEAN CORPUSCULAR VOLUME 91.3 fl (80.0-96.0); MONO # 0.4 10^3/uL (0.0-0.8); MONO % 6.4 % (0.0-5.0); NEUTROPHILS # 4.2 10^3/uL (1.5-8.5); PLATELET COUNT, AUTOMATED 256 10^3/uL (150-450); RED BLOOD COUNT 4.85 10^6/uL (4.00-5.40); WHITE BLOOD COUNT 5.9 10^3/uL (4.0-10.0)
[2020-09-29 18:34] LABS: VENOUS BASE EXCESS 0.8 (-2.0-2.0); VENOUS HCO3 26.5 MEQ/L (23.0-27.0); VENOUS O2 SATURATION 88.2 % (60.0-80.0); VENOUS PARTIAL PRESSURE CO2 46.8 mmHg (38.0-50.0); VENOUS PARTIAL PRESSURE O2 46.3 mmHg (30.0-50.0); VENOUS PH 7.371 UNITS (7.330-7.430); VENOUS STANDARD HCO3 24.9 MEQ/L; VENOUS TOTAL CO2 27.9 MEQ/L (24.0-28.0)
[2020-09-29 19:11] LABS: ACETAMINOPHEN LEVEL < 2.0 UG/ML (10.0-30.0); ALBUMIN 4.5 GM/DL (3.2-5.2); ALT/SGPT 17 U/L (12-78); BILIRUBIN,DIRECT < 0.1 MG/DL (0.0-0.2); BILIRUBIN,TOTAL 0.3 MG/DL (0.2-1.0); BLOOD UREA NITROGEN 16 MG/DL (7-18); CALCIUM LEVEL 9.1 MG/DL (8.5-10.1); CARBON DIOXIDE LEVEL 31 MEQ/L (21-32); CHLORIDE LEVEL 105 MEQ/L (98-107); CK-MB VALUE MASS 1.2 NG/ML (<3.6); CPK CREATINE PHOSPHOKINASE 108 U/L (26-192); CREATININE FOR GFR 0.99 MG/DL (0.55-1.30); ETHYL ALCOHOL (ETHANOL) < 0.003 % (0.000-0.010); GLOMERULAR FILTRATION RATE > 60.0 (>51); GLUCOSE, FASTING 93 MG/DL (70-100); MB/CK RELATIVE INDEX 1.11 (< OR =4); POTASSIUM SERUM 4.1 MEQ/L (3.5-5.1); SALICYLATE LEVEL 6.2 MG/DL (5.0-30.0); SODIUM LEVEL 140 MEQ/L (136-145); TOTAL PROTEIN 7.7 GM/DL (6.4-8.2); TROPONIN I < 0.02 NG/ML (< 0.10)
--- NOTE | 2020-09-29 19:42 | ECGEPIP ---
[facility] - ED Test Date: 2020-09-29 Pat Name: CRYSTAL ARENAS Department: Room: - Gender: Female Home Health Attendant: : 1965 Requested By: JHONNY YUN Order Number: [id number] Reading MD: Nancy Escobedo Measurements Intervals Concrete Rate: 60 P: 24 NC: 167 QRS: -7 QRSD: 110 T: 22 QT: 433 QTc: 433 Interpretive Statements SINUS RHYTHM NONSPECIFIC ST T WAVE CHANGES CW 09/27/[address] T WAVE CHANGES Electronically Signed on 09-29-2020 19:42:21 EST by Nancy Escobedo
== END 2020-09-29 19:53 | disposition home or self-care (01) ==
LOC: M ED 17:32
DX: B34.9 Viral infection, unspecified (principal); J44.9 Chronic obstructive pulmonary disease, unspecified; Z88.2 Allergy status to sulfonamides; Z88.1 Allergy status to other antibiotic agents; Z88.8 Allergy status to other drugs, medicaments and biological substances
CPT/HCPCS: 71045; 80048; 80076; 82550; 82553; 82803; 83605; 84443; 85025; 93005; 93041; 96360; 99285; G0480

== ENCOUNTER → 2021-04-02 | Outpatient (CLI) | payer OTHER ==
[~2021-04-02] MED LIST changes: -ARIP1TAB2 PO; +ARIP1TAB43 PO; -SIME180C PO; +SIME180C25 PO
[2021-04-02 17:57] LABS: ALBUMIN 4.4 GM/DL (3.2-5.2); ALT/SGPT 21 U/L (12-78); BILIRUBIN,TOTAL 0.3 MG/DL (0.2-1.0); BLOOD UREA NITROGEN 6 MG/DL (7-18); CALCIUM LEVEL 10.1 MG/DL (8.5-10.1); CARBON DIOXIDE LEVEL 32 MEQ/L (21-32); CHLORIDE LEVEL 103 MEQ/L (98-107); CHOLESTEROL LEVEL 188 MG/DL (<200); CHOLESTEROL RISK RATIO 5.529 (<5); CREATININE FOR GFR 0.95 MG/DL (0.55-1.30); FREE T4 1.06 NG/DL (0.76-1.46); GLOMERULAR FILTRATION RATE > 60.0 (>51); GLUCOSE, FASTING 101 MG/DL (70-100); HDL CHOLESTEROL 34 MG/DL (>40); LDL CHOLESTEROL 117 MG/DL (<100); NON-HDL-C 154 MG/DL; POTASSIUM SERUM 4.9 MEQ/L (3.5-5.1); SODIUM LEVEL 139 MEQ/L (136-145); TOTAL PROTEIN 7.4 GM/DL (6.4-8.2); TRIGLYCERIDES LEVEL 187 MG/DL (<150)
[2021-04-02 17:58] LABS: TOTAL 25(OH) VITAMIN D 75.4 NG/ML (30.0-100.0)
[2021-04-02 18:12] LABS: HEMOGLOBIN A1c 5.2 %
== END ==
LOC: M PLALAB 15:13
PROVIDERS: ATTEND Nurse Practitioner Family
DX: E03.9 Hypothyroidism, unspecified (principal)

== ENCOUNTER → 2021-05-29 | Outpatient (CLI) | payer OTHER ==
--- NOTE | 2021-05-29 15:17 | REPMRS ---
Patient History The patient states she has not had a clinical breast exam in over a year. No known family history of cancer. No Hormone Replacement Therapy Patient states no breast complaints today. Patient has signed MRS History Sheet. Digital Woman Screen Mammo: May 29, 2021 - Exam #: [id number] Bilateral CC and MLO view(s) were taken. Technologist: Amita Headley, Marine Equipment Design Engineer Prior study comparison: January 25, 2019, bilateral digital woman screen mammo performed at [facility]. October 13, 2017, digital woman screen mammo performed at [facility]. FINDINGS: There are scattered fibroglandular densities. Screening. Digital screening (2D) mammography was performed bilaterally in the CC and MLO projections. Additionally, breast tomosynthesis (3D mammography) was performed bilaterally in the CC and MLO projections. Todays exam was compared to the prior exam/exams. By history, the patient has no complaints of a palpable breast abnormality or other significant breast complaints. The breasts are unchanged in size and shape. There are no harinder-soft tissue densities or spiculated masses. There is no internal architectural distortion. There are no suspicious harinder-calcific clusters. Skin thickening or nipple retraction is not present. IMPRESSION: BI-RADS Category 2- Benign Findings. There is no evidence of malignant alteration of the breasts. Followup examination recommended in one year. The Volpara volumetric breast density category is B, there are scattered areas of fibroglandular densities. This mammogram was read with the assistance of [employer],an FDA approved computer aided detection system for mammography. The lifetime Tyrer-Cuzick score is 8.7 % Negative x-ray reports should not delay surgical consultation if a dominant or clinically suspicious mass is present. Not all breast cancers can be identified by mammography. Therefore, we recommend that you continue to perform regular breast self-examination and physical examination and then promptly contact your physician of any concerns or changes. Adenosis and dense breasts may obscure an underlying neoplasm. Assessment: BI-RADS/ACR category 2 mammogram. Benign Findings. Recommendation Routine screening mammogram of both breasts in 1 year. Electronically Signed By: Daniel Jackson DO 05/29/21 [id number]
== END ==
LOC: M WHC 14:25
PROVIDERS: ATTEND Nurse Practitioner Family
DX: Z12.31 Encounter for screening mammogram for malignant neoplasm of breast (principal)

== ENCOUNTER 2021-06-17 15:41 | Emergency (ER) | payer OTHER ==
[~2021-06-17] VITALS: Ht 160 cm; Wt 81.1 kg
[2021-06-17 15:41] VITALS: BP 182/87
== END 2021-06-17 19:58 | disposition left against medical advice (07) ==
LOC: M ED 15:41
DX: Z53.21 Procedure and treatment not carried out due to patient leaving prior to being seen by health care provider (principal)

== ENCOUNTER 2021-06-21 00:22 | Emergency (ER) | payer OTHER ==
[2021-06-21 02:37] LABS: BASO # 0.1 10^3/uL (0.0-0.2); BASO % 0.6 % (0.0-1.0); EOS # 0.1 10^3/uL (0.0-0.5); EOS % 0.9 % (0.0-3.0); HEMATOCRIT 43.8 % (36.0-47.0); HEMOGLOBIN 14.4 g/dl (12.0-15.5); LYMPH # 2.4 10^3/uL (1.5-5.0); MEAN CORPUSCULAR HEMOGLOBIN 29.8 pg (27.0-33.0); MEAN CORPUSCULAR HGB CONC 32.9 g/dl (32.0-36.5); MEAN CORPUSCULAR VOLUME 90.7 fl (80.0-96.0); MONO # 0.9 10^3/uL (0.0-0.8); MONO % 7.9 % (2.0-8.0); NEUTROPHILS % 69.1 % (36.0-66.0); PLATELET COUNT, AUTOMATED 286 10^3/uL (150-450); RED BLOOD COUNT 4.83 10^6/uL (4.00-5.40); WHITE BLOOD COUNT 11.5 10^3/uL (4.0-10.0)
[2021-06-21 03:18] LABS: ALBUMIN 3.7 GM/DL (3.2-5.2); ALT/SGPT 24 U/L (12-78); BILIRUBIN,TOTAL 0.2 MG/DL (0.2-1.0); BLOOD UREA NITROGEN 13 MG/DL (7-18); CALCIUM LEVEL 9.6 MG/DL (8.5-10.1); CARBON DIOXIDE LEVEL 28 MEQ/L (21-32); CHLORIDE LEVEL 107 MEQ/L (98-107); CREATININE FOR GFR 0.77 MG/DL (0.55-1.30); GLOMERULAR FILTRATION RATE > 60.0 (>51); GLUCOSE, FASTING 94 MG/DL (70-100); POTASSIUM SERUM 3.9 MEQ/L (3.5-5.1); SODIUM LEVEL 142 MEQ/L (136-145); TOTAL PROTEIN 7.3 GM/DL (6.4-8.2)
--- NOTE | 2021-06-21 03:30 | REPVR ---
PROCEDURE INFORMATION: Exam: XR Chest Exam date and time: 06/21/2021 2:13 AM Age: 56 years old Clinical indication: Other: Cough TECHNIQUE: Imaging protocol: XR of the chest. Views: 1 view. COMPARISON: CR PORTABLE CHEST X-RAY 09/29/2020 5:56 PM FINDINGS: Lungs: Lungs are well aerated. No consolidation. Pleural spaces: No significant pleural effusions. No pneumothorax. Heart/Mediastinum: Cardiac size is normal and mediastinal contour stable. Bones/joints: Bones are stable. IMPRESSION: No acute abnormalities are identified. Electronically signed by: Arnol Wilkins On 06/21/2021 03:29:46 AM
[2021-06-21] MEDS ORDERED: NEUR100C PO (03:54)
[2021-06-21 04:15] VITALS: BP 134/65
== END 2021-06-21 04:42 | disposition home or self-care (01) ==
LOC: M ED 00:22
DX: B02.9 Zoster without complications (principal); R05.9 Cough, unspecified; N32.81 Overactive bladder; Z88.1 Allergy status to other antibiotic agents; Z88.2 Allergy status to sulfonamides; Z88.8 Allergy status to other drugs, medicaments and biological substances; Z79.899 Other long term (current) drug therapy

== ENCOUNTER → 2022-04-01 | Outpatient (CLI) | payer OTHER ==
[~2022-04-01] MED LIST changes: -CYMB60CA3 PO; +CYMB60CA4 PO; -LATU40TA PO; +LATU40TA2 PO; +NEUR100C PO; +TIZA10TA; -TIZA4TAB4
== END ==
LOC: M EKG 15:06
PROVIDERS: ATTEND Registered Nurse
DX: Z51.81 Encounter for therapeutic drug level monitoring (principal); Z79.899 Other long term (current) drug therapy; F31.81 Bipolar II disorder

== ENCOUNTER → 2022-04-01 | Outpatient (CLI) | payer OTHER ==
[2022-04-01 16:25] LABS: BASO # 0.1 10^3/uL (0.0-0.2); BASO % 0.8 % (0.0-1.0); EOS # 0.3 10^3/uL (0.0-0.5); EOS % 4.7 % (0.0-3.0); HEMATOCRIT 41.3 % (36.0-47.0); HEMOGLOBIN 13.9 g/dl (12.0-15.5); LYMPH # 1.7 10^3/uL (1.5-5.0); LYMPH % 23.9 % (24.0-44.0); MEAN CORPUSCULAR HEMOGLOBIN 30.9 pg (27.0-33.0); MEAN CORPUSCULAR HGB CONC 33.7 g/dl (32.0-36.5); MEAN CORPUSCULAR VOLUME 91.8 fl (80.0-96.0); MONO # 0.6 10^3/uL (0.0-0.8); MONO % 8.7 % (2.0-8.0); NEUTROPHILS # 4.5 10^3/uL (1.5-8.5); NEUTROPHILS % 61.6 % (36.0-66.0); PLATELET COUNT, AUTOMATED 285 10^3/uL (150-450); WHITE BLOOD COUNT 7.3 10^3/uL (4.0-10.0)
[2022-04-01 18:21] LABS: ALBUMIN 4.2 GM/DL (3.2-5.2); ALT/SGPT 18 U/L (12-78); BILIRUBIN,TOTAL 0.4 MG/DL (0.2-1.0); BLOOD UREA NITROGEN 9 MG/DL (7-18); CALCIUM LEVEL 9.8 MG/DL (8.5-10.1); CARBON DIOXIDE LEVEL 28 MEQ/L (21-32); CHLORIDE LEVEL 109 MEQ/L (98-107); CHOLESTEROL LEVEL 193 MG/DL (<200); CHOLESTEROL RISK RATIO 5.361 (<5); CREATININE FOR GFR 0.86 MG/DL (0.55-1.30); FREE T4 1.08 NG/DL (0.76-1.46); GLOMERULAR FILTRATION RATE > 60.0 (>51); GLUCOSE, FASTING 99 MG/DL (70-100); HDL CHOLESTEROL 36 MG/DL (>40); LDL CHOLESTEROL 127 MG/DL (<100); NON-HDL-C 157 MG/DL; POTASSIUM SERUM 3.5 MEQ/L (3.5-5.1); SODIUM LEVEL 143 MEQ/L (136-145); TOTAL PROTEIN 7.1 GM/DL (6.4-8.2); TRIGLYCERIDES LEVEL 150 MG/DL (<150)
[2022-04-01 19:29] LABS: TOTAL 25(OH) VITAMIN D 63.3 NG/ML (30.0-100.0)
[2022-04-01 22:00] LABS: HEMOGLOBIN A1c 5.2 %
== END ==
LOC: M LAB 15:02
PROVIDERS: ATTEND Nurse Practitioner Family
DX: E55.9 Vitamin D deficiency, unspecified (principal); F31.9 Bipolar disorder, unspecified; E03.9 Hypothyroidism, unspecified; E78.5 Hyperlipidemia, unspecified

== ENCOUNTER → 2022-06-24 | Outpatient (CLI) | payer OTHER ==
[~2022-06-24] MED LIST changes: +METH-1165 PO; +OLAN2.5T25 PO
[2022-06-24 12:44] LABS: BASO # 0.1 10^3/uL (0.0-0.2); EOS # 0.3 10^3/uL (0.0-0.5); EOS % 5.2 % (0.0-3.0); HEMATOCRIT 43.9 % (36.0-47.0); HEMOGLOBIN 14.4 g/dl (12.0-15.5); LYMPH # 1.5 10^3/uL (1.5-5.0); LYMPH % 24.3 % (24.0-44.0); MEAN CORPUSCULAR HGB CONC 32.8 g/dl (32.0-36.5); MEAN CORPUSCULAR VOLUME 91.5 fl (80.0-96.0); MONO # 0.5 10^3/uL (0.0-0.8); NEUTROPHILS # 3.7 10^3/uL (1.5-8.5); NEUTROPHILS % 61.2 % (36.0-66.0); PLATELET COUNT, AUTOMATED 265 10^3/uL (150-450)
[2022-06-24 13:38] LABS: CALCIUM LEVEL 9.8 MG/DL (8.5-10.1); CREATININE FOR GFR 1.05 MG/DL (0.55-1.30); GLOMERULAR FILTRATION RATE 57.5 (>51); POTASSIUM SERUM 4.2 MEQ/L (3.5-5.1)
== END ==
LOC: M WUC 09:56
PROVIDERS: ATTEND Podiatrist
DX: M20.12 Hallux valgus (acquired), left foot (principal); M79.672 Pain in left foot

== ENCOUNTER → 2022-06-28 | Outpatient (REF) | payer OTHER | LOC: M WUC 18:47 | PROVIDERS: ATTEND Physician Assistant | DX: R35.0 Frequency of micturition (principal) ==

== ENCOUNTER → 2022-07-01 | Outpatient (CLI) | payer OTHER | LOC: M LABSMTC 09:30 | PROVIDERS: ATTEND Anesthesiology | DX: Z01.812 Encounter for preprocedural laboratory examination (principal); Z20.822 Contact with and (suspected) exposure to COVID-19 ==

== ENCOUNTER 2022-07-03 06:50 | Day surgery (SDC) | payer OTHER ==
[~2022-07-03] VITALS: Ht 160 cm; Wt 75.4 kg
[~2022-07-03 06:50] MED LIST changes: +VANCOMYCIN HCL 1,000 MG, VIAL MATE ADAPTER 1 EACH in D5W 250 ML IV ONE
[2022-07-03] MEDS ORDERED: LR 1,000 ML IV SCH (07:00)
[2022-07-03] MEDS ORDERED: LIDOCAINE 2% MDV 20ML VIAL As Ordered ONE (08:07)
[2022-07-03] MEDS ORDERED: BUPIVACAINE HCL 0.5% 30ML VIAL As Ordered ONE (08:08)
[2022-07-03] MEDS ORDERED: GENTAMICIN SULF 80MG/2ML VIAL As Ordered ONE (08:08)
[2022-07-03] MEDS ORDERED: propofoL 500 MG/50 ML VIAL As Ordered ONE (08:10)
[2022-07-03] MEDS ORDERED: LIDOCAINE 2% 100MG/5ML SDV (FOR ANES.) As Ordered ONE (08:10)
[2022-07-03] MEDS ORDERED: MIDAZOLAM INJ 2MG/2ML VIAL (J2250 PER 1MG) As Ordered ONE (08:11)
[2022-07-03] MEDS ORDERED: fentaNYL 100 MCG/2 ML INJECTION As Ordered ONE (08:11)
[2022-07-03] MEDS ORDERED: dexameTHASONE 4 MG/ML 1ML VIAL (J1100 PER 1MG) As Ordered ONE (08:20)
[2022-07-03] MEDS ORDERED: KETOROLAC 60MG 2ML VIAL As Ordered ONE (09:18)
[2022-07-03] MEDS ORDERED: ePHEDrine SULFATE 25 MG/5 ML(5MG/ML) SYRINGE As Ordered ONE (09:18)
[2022-07-03] MEDS ORDERED: PHENYLephrine 500MCG 5ML (100MCG/ML) SYRINGE As Ordered ONE (09:18)
[2022-07-03 10:10] VITALS: BP 127/66
== END 2022-07-03 11:15 | disposition home or self-care (01) ==
LOC: M SDC 06:50
PROVIDERS: ATTEND Podiatrist
DX: M20.12 Hallux valgus (acquired), left foot (principal); M79.672 Pain in left foot; E03.9 Hypothyroidism, unspecified; F31.9 Bipolar disorder, unspecified; F43.10 Post-traumatic stress disorder, unspecified; F41.9 Anxiety disorder, unspecified; F32.A Depression, unspecified; N32.81 Overactive bladder; G25.81 Restless legs syndrome; Z88.2 Allergy status to sulfonamides; Z88.1 Allergy status to other antibiotic agents; F17.210 Nicotine dependence, cigarettes, uncomplicated; F12.10 Cannabis abuse, uncomplicated; Z79.899 Other long term (current) drug therapy
CPT/HCPCS: 28296; 73630; 76000; 88300; 97116; 97162; C1713; J1100; J1580; J1885; J2250; J2370; J3010; J3370

== ENCOUNTER → 2022-08-24 | Outpatient (CLI) | payer OTHER ==
[~2022-08-24] MED LIST changes: -VANCOMYCIN HCL 1,000 MG, VIAL MATE ADAPTER 1 EACH in D5W 250 ML IV ONE
== END ==
LOC: M WUC 13:22
PROVIDERS: ATTEND Physician Assistant
DX: S20.212A Contusion of left front wall of thorax, initial encounter (principal); X58.XXXA Exposure to other specified factors, initial encounter

== ENCOUNTER → 2022-12-21 | Outpatient (CLI) | payer OTHER ==
[2022-12-21 20:16] LABS: BASO # 0.1 10^3/uL (0.0-0.2); BASO % 1.1 % (0.0-1.0); EOS # 0.3 10^3/uL (0.0-0.5); EOS % 5.1 % (0.0-3.0); HEMOGLOBIN 13.5 g/dl (12.0-15.5); LYMPH # 1.4 10^3/uL (1.5-5.0); LYMPH % 24.8 % (24.0-44.0); MEAN CORPUSCULAR HEMOGLOBIN 29.8 pg (27.0-33.0); MEAN CORPUSCULAR HGB CONC 32.1 g/dl (32.0-36.5); MEAN CORPUSCULAR VOLUME 92.7 fl (80.0-96.0); MONO # 0.4 10^3/uL (0.0-0.8); MONO % 6.9 % (2.0-8.0); NEUTROPHILS # 3.5 10^3/uL (1.5-8.5); NEUTROPHILS % 61.7 % (36.0-66.0); PLATELET COUNT, AUTOMATED 282 10^3/uL (150-450); RED BLOOD COUNT 4.53 10^6/uL (4.00-5.40); WHITE BLOOD COUNT 5.7 10^3/uL (4.0-10.0)
[2022-12-21 20:19] LABS: THYROID STIMULATING HORMONE 4.779 uIU/ML (0.55-4.78)
[2022-12-21 20:21] LABS: TOTAL 25(OH) VITAMIN D 62.3 NG/ML (20.0-100.0)
[2022-12-21 20:24] LABS: ALBUMIN 4.1 G/DL (3.2-5.2); ALKALINE PHOSPHATASE 84 U/L (46-116); ALT/SGPT 16 U/L (7.0-40); AST/SGOT 20 U/L (<34); BILIRUBIN,TOTAL 0.2 MG/DL (0.3-1.2); BLOOD UREA NITROGEN 8 MG/DL (9-23); CALCIUM LEVEL 10.1 MG/DL (8.5-10.1); CARBON DIOXIDE LEVEL 30 MMOL/L (20-31); CHLORIDE LEVEL 106 MMOL/L (98-107); CHOLESTEROL LEVEL 175 MG/DL (<200); CHOLESTEROL RISK RATIO 3.78 (<5); CREATININE FOR GFR 0.93 MG/DL (0.55-1.30); GLOMERULAR FILTRATION RATE > 60.0 (>51); GLUCOSE, FASTING 91 MG/DL (60-100); HDL CHOLESTEROL 46.2 MG/DL (>40); LDL CHOLESTEROL 105.4 MG/DL (<100); NON-HDL-C 128.8 MG/DL; POTASSIUM SERUM 4.7 MMOL/L (3.5-5.1); SODIUM LEVEL 141 MMOL/L (136-145); TOTAL PROTEIN 6.7 G/DL (5.7-8.2); TRIGLYCERIDES LEVEL 117 MG/DL (<150)
[2022-12-21 20:25] LABS: FREE T4 1.05 NG/DL (0.89-1.76)
== END ==
LOC: M PLAIMG 15:23
PROVIDERS: ATTEND Nurse Practitioner Family
DX: M25.561 Pain in right knee (principal); E03.9 Hypothyroidism, unspecified; F31.9 Bipolar disorder, unspecified; E55.9 Vitamin D deficiency, unspecified; E78.5 Hyperlipidemia, unspecified

== ENCOUNTER → 2023-01-11 | Outpatient (REF) | payer OTHER | LOC: M SFHCWAGY 12:48 | PROVIDERS: ATTEND Nurse Practitioner Family | DX: Z12.4 Encounter for screening for malignant neoplasm of cervix (principal); Z77.9 Other contact with and (suspected) exposures hazardous to health ==

== ENCOUNTER → 2023-01-11 | Outpatient (CLI) | payer OTHER | LOC: M WHC 08:00 | PROVIDERS: ATTEND Nurse Practitioner Family | DX: Z12.31 Encounter for screening mammogram for malignant neoplasm of breast (principal); Z13.820 Encounter for screening for osteoporosis; M85.88 Other specified disorders of bone density and structure, other site; M85.851 Other specified disorders of bone density and structure, right thigh; M85.852 Other specified disorders of bone density and structure, left thigh ==

== ENCOUNTER → 2023-01-14 | Outpatient (CLI) | payer OTHER ==
[~2023-01-14] MED LIST changes: +E-Z-GAS II EFFERVESCENT PACKET (SODIUM BICARB./CITRIC ACID/SIMETHICONE) As Ordered ONE; +E-Z-HD 98% w/w 340GM SUSP BTL As Ordered ONE; +E-Z-PAQUE 96% w/w SUSP 176GM BTL As Ordered ONE
== END ==
LOC: M RAD 07:28
PROVIDERS: ATTEND Nurse Practitioner Family
DX: R11.2 Nausea with vomiting, unspecified (principal)

== ENCOUNTER → 2023-02-08 | Outpatient (CLI) | payer OTHER ==
[~2023-02-08] MED LIST changes: -E-Z-GAS II EFFERVESCENT PACKET (SODIUM BICARB./CITRIC ACID/SIMETHICONE) As Ordered ONE; -E-Z-HD 98% w/w 340GM SUSP BTL As Ordered ONE; -E-Z-PAQUE 96% w/w SUSP 176GM BTL As Ordered ONE
== END ==
LOC: M RAD 12:23
PROVIDERS: ATTEND Nurse Practitioner Family
DX: Z12.2 Encounter for screening for malignant neoplasm of respiratory organs (principal)

== ENCOUNTER → 2023-04-06 | Day surgery (SDC) | payer OTHER ==
[~2023-04-06] VITALS: Ht 160 cm; Wt 79.5 kg
[~2023-04-06] MED LIST changes: +LIDOCAINE 2% 100MG/5ML SDV (FOR ANES.) As Ordered ONE; +NS 1,000 ML IV ONE; +OMEP-173 PO; +VENL75TA2 PO; +propofoL 200 MG/20 ML VIAL As Ordered ONE
[2023-04-06 09:52] VITALS: TEMP 98.1
[2023-04-06 10:10] VITALS: BP 132/60; O2SAT 99
== END | disposition home or self-care (01) ==
LOC: M OPP 08:06
PROVIDERS: ATTEND Internal Medicine Gastroenterology
DX: Z12.11 Encounter for screening for malignant neoplasm of colon (principal); Z86.010 Personal history of colon polyps; D12.6 Benign neoplasm of colon, unspecified; K64.4 Residual hemorrhoidal skin tags; K64.8 Other hemorrhoids; K57.30 Diverticulosis of large intestine without perforation or abscess without bleeding; F17.200 Nicotine dependence, unspecified, uncomplicated; Z79.890 Hormone replacement therapy; Z79.899 Other long term (current) drug therapy; Z88.1 Allergy status to other antibiotic agents; Z88.2 Allergy status to sulfonamides

== ENCOUNTER → 2023-05-03 | Outpatient (CLI) | payer OTHER ==
[~2023-05-03] MED LIST changes: -LIDOCAINE 2% 100MG/5ML SDV (FOR ANES.) As Ordered ONE; -NS 1,000 ML IV ONE; -propofoL 200 MG/20 ML VIAL As Ordered ONE
[2023-05-03 13:53] LABS: BASO # 0.1 10^3/uL (0.0-0.2); BASO % 1.1 % (0.0-1.0); EOS # 0.4 10^3/uL (0.0-0.5); EOS % 5.6 % (0.0-3.0); HEMOGLOBIN 14.5 g/dl (12.0-15.5); LYMPH # 1.5 10^3/uL (1.5-5.0); LYMPH % 20.9 % (24.0-44.0); MEAN CORPUSCULAR HEMOGLOBIN 30.3 pg (27.0-33.0); MEAN CORPUSCULAR HGB CONC 33.7 g/dl (32.0-36.5); MEAN CORPUSCULAR VOLUME 89.8 fl (80.0-96.0); MONO # 0.7 10^3/uL (0.0-0.8); MONO % 9.5 % (2.0-8.0); NEUTROPHILS # 4.6 10^3/uL (1.5-8.5); NEUTROPHILS % 62.5 % (36.0-66.0); PLATELET COUNT, AUTOMATED 245 10^3/uL (150-450); RED BLOOD COUNT 4.79 10^6/uL (4.00-5.40); WHITE BLOOD COUNT 7.4 10^3/uL (4.0-10.0)
[2023-05-03 14:23] LABS: ALBUMIN 4.2 G/DL (3.2-5.2); ALKALINE PHOSPHATASE 87 U/L (46-116); ALT/SGPT 13 U/L (7.0-40); AST/SGOT 10 U/L (<34); BILIRUBIN,TOTAL 0.2 MG/DL (0.3-1.2); BLOOD UREA NITROGEN 8 MG/DL (9-23); CALCIUM LEVEL 9.9 MG/DL (8.5-10.1); CARBON DIOXIDE LEVEL 30 MMOL/L (20-31); CHLORIDE LEVEL 107 MMOL/L (98-107); CHOLESTEROL LEVEL 181 MG/DL (<200); CHOLESTEROL RISK RATIO 4.22 (<5); CREATININE FOR GFR 0.85 MG/DL (0.55-1.30); GLOMERULAR FILTRATION RATE > 60.0 (>51); GLUCOSE, FASTING 81 MG/DL (60-100); HDL CHOLESTEROL 42.8 MG/DL (>40); LDL CHOLESTEROL 109.2 MG/DL (<100); NON-HDL-C 138.2 MG/DL; POTASSIUM SERUM 4.3 MMOL/L (3.5-5.1); SODIUM LEVEL 144 MMOL/L (136-145); THYROID STIMULATING HORMONE 2.915 uIU/ML (0.55-4.78); TOTAL PROTEIN 6.9 G/DL (5.7-8.2); TRIGLYCERIDES LEVEL 145 MG/DL (<150)
[2023-05-03 14:24] LABS: TOTAL 25(OH) VITAMIN D 57.2 NG/ML (20.0-100.0)
[2023-05-03 14:25] LABS: FREE T4 1.18 NG/DL (0.89-1.76)
== END ==
LOC: M PLAIMG 12:29
PROVIDERS: ATTEND Nurse Practitioner Family
DX: R05.9 Cough, unspecified (principal); E03.9 Hypothyroidism, unspecified; E78.5 Hyperlipidemia, unspecified; E55.9 Vitamin D deficiency, unspecified

== ENCOUNTER → 2023-05-19 | Outpatient (CLI) | payer OTHER | LOC: M SOG 07:52 | PROVIDERS: ATTEND Orthopaedic Surgery | DX: M54.50 Low back pain, unspecified (principal); M47.816 Spondylosis without myelopathy or radiculopathy, lumbar region ==

== ENCOUNTER → 2024-01-10 | Outpatient (CLI) | payer OTHER ==
[~2024-01-10] MED LIST changes: -OXYB5TAB10 PO; +OXYB5TAB14 PO
== END ==
LOC: M WUC 14:33
PROVIDERS: ATTEND Physician Assistant
DX: S63.8X2A Sprain of other part of left wrist and hand, initial encounter (principal); W18.30XA Fall on same level, unspecified, initial encounter; Y92.009 Unspecified place in unspecified non-institutional (private) residence as the place of occurrence of the external cause

== ENCOUNTER → 2024-01-31 | Outpatient (CLI) | payer OTHER | LOC: M WUC 12:27 | PROVIDERS: ATTEND Nurse Practitioner Family | DX: M25.532 Pain in left wrist (principal); L03.114 Cellulitis of left upper limb ==

== ENCOUNTER → 2024-03-17 | Outpatient (CLI) | payer OTHER ==
[2024-03-17 17:04] LABS: TOTAL 25(OH) VITAMIN D 47.8 NG/ML (20.0-100.0)
[2024-03-17 17:05] LABS: FREE T4 1.01 NG/DL (0.89-1.76); THYROID STIMULATING HORMONE 2.015 uIU/ML (0.55-4.78)
[2024-03-17 17:06] LABS: ALBUMIN 4.1 G/DL (3.2-5.2); ALKALINE PHOSPHATASE 82 U/L (46-116); ALT/SGPT 12 U/L (7.0-40); AST/SGOT 10 U/L (<34); BILIRUBIN,TOTAL 0.3 MG/DL (0.3-1.2); BLOOD UREA NITROGEN 14 MG/DL (9-23); CALCIUM LEVEL 9.2 MG/DL (8.5-10.1); CARBON DIOXIDE LEVEL 29 MMOL/L (20-31); CHLORIDE LEVEL 111 MMOL/L (98-107); CHOLESTEROL LEVEL 169 MG/DL (<200); CHOLESTEROL RISK RATIO 4.51 (<5); CREATININE FOR GFR 0.84 MG/DL (0.55-1.30); GLOMERULAR FILTRATION RATE > 60.0 (>51); GLUCOSE, FASTING 106 MG/DL (60-100); HDL CHOLESTEROL 37.4 MG/DL (>40); LDL CHOLESTEROL 109.6 MG/DL (<100); NON-HDL-C 131.6 MG/DL; POTASSIUM SERUM 4.2 MMOL/L (3.5-5.1); SODIUM LEVEL 144 MMOL/L (136-145); TOTAL PROTEIN 6.6 G/DL (5.7-8.2); TRIGLYCERIDES LEVEL 110 MG/DL (<150)
[2024-03-17 17:11] LABS: BASO # 0.1 10^3/uL (0.0-0.2); BASO % 1.4 % (0.0-1.0); EOS # 0.4 10^3/uL (0.0-0.5); EOS % 7.6 % (0.0-3.0); HEMATOCRIT 44.5 % (36.0-47.0); HEMOGLOBIN 14.9 g/dl (12.0-15.5); LYMPH # 1.3 10^3/uL (1.5-5.0); LYMPH % 22.6 % (24.0-44.0); MEAN CORPUSCULAR HGB CONC 33.5 g/dl (32.0-36.5); MEAN CORPUSCULAR VOLUME 92.7 fl (80.0-96.0); MONO # 0.5 10^3/uL (0.0-0.8); MONO % 8.9 % (2.0-8.0); NEUTROPHILS # 3.4 10^3/uL (1.5-8.5); NEUTROPHILS % 59.3 % (36.0-66.0); PLATELET COUNT, AUTOMATED 233 10^3/uL (150-450); WHITE BLOOD COUNT 5.8 10^3/uL (4.0-10.0)
== END ==
LOC: M WUC 10:59
PROVIDERS: ATTEND Nurse Practitioner Family
DX: E03.9 Hypothyroidism, unspecified (principal); E78.5 Hyperlipidemia, unspecified; R73.01 Impaired fasting glucose; E55.9 Vitamin D deficiency, unspecified

== ENCOUNTER 2024-08-11 12:55 | Emergency (ER) | payer OTHER ==
[~2024-08-11] VITALS: Ht 160 cm; Wt 70.6 kg
[~2024-08-11 12:55] MED LIST changes: -ARIP1TAB43 PO; +ARIP20TA51 PO; -OLAN2.5T25 PO; +OLAN2.5T53 PO; -SIME180C25 PO; +SIME1CAP4 PO
[2024-08-11] MEDS ORDERED: MIRA3350 PO (15:47)
[2024-08-11] MEDS ORDERED: COLA100C5 PO (15:47)
[2024-08-11 15:54] VITALS: BP 159/80; TEMP 97.5; O2SAT 97
== END 2024-08-11 15:56 | disposition home or self-care (01) ==
LOC: M ED 12:55
DX: K59.00 Constipation, unspecified (principal); E03.9 Hypothyroidism, unspecified; F41.9 Anxiety disorder, unspecified; F32.A Depression, unspecified; F31.9 Bipolar disorder, unspecified; F43.10 Post-traumatic stress disorder, unspecified; F17.200 Nicotine dependence, unspecified, uncomplicated; F12.10 Cannabis abuse, uncomplicated; Z88.2 Allergy status to sulfonamides; Z88.1 Allergy status to other antibiotic agents; Z88.8 Allergy status to other drugs, medicaments and biological substances; Z79.899 Other long term (current) drug therapy

== ENCOUNTER → 2024-08-29 | Outpatient (CLI) | payer OTHER ==
[~2024-08-29] MED LIST changes: +MIRA3350 PO
== END ==
LOC: M RAD 10:09
PROVIDERS: ATTEND Nurse Practitioner Family
DX: F17.210 Nicotine dependence, cigarettes, uncomplicated (principal)

== ENCOUNTER → 2024-10-09 | Outpatient (CLI) | payer MEDICAID, OTHER ==
[2024-10-09 13:58] LABS: BASO # 0.1 10^3/uL (0.0-0.2); BASO % 1.1 % (0.0-1.0); EOS # 0.3 10^3/uL (0.0-0.5); EOS % 4.4 % (0.0-3.0); HEMATOCRIT 48.8 % (36.0-47.0); HEMOGLOBIN 16.1 g/dl (12.0-15.5); LYMPH # 1.5 10^3/uL (1.5-5.0); LYMPH % 21.8 % (24.0-44.0); MEAN CORPUSCULAR HEMOGLOBIN 30.3 pg (27.0-33.0); MEAN CORPUSCULAR VOLUME 91.9 fl (80.0-96.0); MONO # 0.5 10^3/uL (0.0-0.8); MONO % 7.6 % (2.0-8.0); NEUTROPHILS # 4.6 10^3/uL (1.5-8.5); NEUTROPHILS % 64.8 % (36.0-66.0); PLATELET COUNT, AUTOMATED 261 10^3/uL (150-450); RED BLOOD COUNT 5.31 10^6/uL (4.00-5.40); WHITE BLOOD COUNT 7.1 10^3/uL (4.0-10.0)
[2024-10-09 14:32] LABS: ALBUMIN 4.4 G/DL (3.2-5.2); ALKALINE PHOSPHATASE 91 U/L (35-104); ALT/SGPT 11 U/L (7.0-40); AST/SGOT 12 U/L (<34); BILIRUBIN,TOTAL 0.2 MG/DL (0.3-1.2); BLOOD UREA NITROGEN 10 MG/DL (9-23); CALCIUM LEVEL 10.3 MG/DL (8.5-10.1); CARBON DIOXIDE LEVEL 32 MMOL/L (20-31); CHLORIDE LEVEL 106 MMOL/L (98-107); CHOLESTEROL LEVEL 225 MG/DL (<200); CHOLESTEROL RISK RATIO 5.17 (<5); CREATININE FOR GFR 0.94 MG/DL (0.55-1.30); FREE T4 1.16 NG/DL (0.89-1.76); GLOMERULAR FILTRATION RATE > 60.0 (>51); GLUCOSE, FASTING 95 MG/DL (60-100); HDL CHOLESTEROL 43.5 MG/DL (>40); LDL CHOLESTEROL 145.3 MG/DL (<100); MAGNESIUM LEVEL 2.4 MG/DL (1.8-2.4); NON-HDL-C 181.5 MG/DL; POTASSIUM SERUM 4.9 MMOL/L (3.5-5.1); SODIUM LEVEL 144 MMOL/L (136-145); THYROID STIMULATING HORMONE 4.619 uIU/ML (0.55-4.78); TOTAL PROTEIN 7.8 G/DL (5.7-8.2); TRIGLYCERIDES LEVEL 181 MG/DL (<150)
== END ==
LOC: M PLALAB 10:42
PROVIDERS: ATTEND Nurse Practitioner Family
DX: E03.9 Hypothyroidism, unspecified (principal); G25.81 Restless legs syndrome; E55.9 Vitamin D deficiency, unspecified; E78.5 Hyperlipidemia, unspecified

== ENCOUNTER 2024-12-11 14:09 | Emergency (ER) | payer MEDICAID, OTHER ==
[~2024-12-11] VITALS: Ht 160 cm; Wt 69.5 kg
[2024-12-11 17:55] VITALS: BP 140/67; TEMP 98.1; O2SAT 100
== END 2024-12-11 20:26 | disposition left against medical advice (07) ==
LOC: M ED 14:09 → EDBD 14:09 → M ED 20:26
DX: Z53.21 Procedure and treatment not carried out due to patient leaving prior to being seen by health care provider (principal)

== ENCOUNTER → 2025-01-05 | Outpatient (CLI) | payer OTHER ==
[2025-01-05 12:04] LABS: ALBUMIN 3.5 G/DL (3.2-5.2); BILIRUBIN,TOTAL 0.2 MG/DL (0.3-1.2); CALCIUM LEVEL 8.9 MG/DL (8.5-10.1); CHOLESTEROL RISK RATIO 2.73 (<5); CREATININE FOR GFR 0.82 MG/DL (0.55-1.30); GLOMERULAR FILTRATION RATE 82.4 (>51); HDL CHOLESTEROL 45.4 MG/DL (>40); LDL CHOLESTEROL 64.6 MG/DL (<100); NON-HDL-C 78.6 MG/DL; POTASSIUM SERUM 4.3 MMOL/L (3.5-5.1); TOTAL PROTEIN 6.2 G/DL (5.7-8.2)
== END ==
LOC: M LAB 09:36
PROVIDERS: ATTEND Internal Medicine Cardiovascular Disease
DX: I10 Essential (primary) hypertension (principal); I71.21 Aneurysm of the ascending aorta, without rupture; R06.02 Shortness of breath; E78.2 Mixed hyperlipidemia

== ENCOUNTER → 2025-01-29 | Outpatient (CLI) | payer OTHER | LOC: M RAD 07:29 | PROVIDERS: ATTEND Internal Medicine Cardiovascular Disease | DX: I71.40 Abdominal aortic aneurysm, without rupture, unspecified (principal) ==

== ENCOUNTER → 2025-04-18 | Outpatient (CLI) | payer OTHER | LOC: M RAD 09:38 | PROVIDERS: ATTEND Internal Medicine Cardiovascular Disease | DX: I71.40 Abdominal aortic aneurysm, without rupture, unspecified (principal) ==

== ENCOUNTER → 2025-07-04 | Outpatient (CLI) | payer OTHER ==
[2025-07-04 13:44] LABS: BASO # 0.1 10^3/uL (0.0-0.2); BASO % 1.1 % (0.0-1.0); EOS # 0.4 10^3/uL (0.0-0.5); EOS % 6.8 % (0.0-3.0); LYMPH # 1.7 10^3/uL (1.5-5.0); LYMPH % 26.8 % (24.0-44.0); MONO # 0.6 10^3/uL (0.0-0.8); MONO % 8.9 % (2.0-8.0); NEUTROPHILS # 3.5 10^3/uL (1.5-8.5); NEUTROPHILS % 56.1 % (36.0-66.0); PLATELET COUNT, AUTOMATED 265 10^3/uL (150-450)
[2025-07-04 13:58] LABS: ESTIMATED AVERAGE GLUCOSE 105.0 MG/DL (60-110)
[2025-07-04 14:07] LABS: ALT/SGPT 15.0 U/L (7.0-40); AST/SGOT 20.0 U/L (<34); CALCIUM LEVEL 9.3 MG/DL (8.3-10.6); CARBON DIOXIDE LEVEL 29.0 MMOL/L (20-31); CHLORIDE LEVEL 107.0 MMOL/L (98-107); CHOLESTEROL LEVEL 132.0 MG/DL (<200); CHOLESTEROL RISK RATIO 3.22 (<5); CREATININE FOR GFR 0.92 MG/DL (0.55-1.30); GLOMERULAR FILTRATION RATE 71.3 (>45); LDL CHOLESTEROL 64.9 MG/DL (<100); MAGNESIUM LEVEL 2.3 MG/DL (1.8-2.4); NON-HDL-C 91.1 MG/DL; POTASSIUM SERUM 4.6 MMOL/L (3.5-5.1); SODIUM LEVEL 145.0 MMOL/L (136-145); TRIGLYCERIDES LEVEL 131.0 MG/DL (<150)
[2025-07-04 14:08] LABS: TOTAL 25(OH) VITAMIN D 53.3 NG/ML (20.0-100.0)
[2025-07-04 14:10] LABS: FREE T4 0.79 NG/DL (0.89-1.76)
== END ==
LOC: M WUC 09:11
PROVIDERS: ATTEND Nurse Practitioner Family
DX: E03.9 Hypothyroidism, unspecified (principal); I10 Essential (primary) hypertension; E78.5 Hyperlipidemia, unspecified; R73.01 Impaired fasting glucose; E55.9 Vitamin D deficiency, unspecified

== ENCOUNTER → 2025-07-10 | Outpatient (CLI) | payer OTHER | LOC: M WHC 10:11 | PROVIDERS: ATTEND Nurse Practitioner Family | DX: Z12.31 Encounter for screening mammogram for malignant neoplasm of breast (principal); R92.313 Mammographic fatty tissue density, bilateral breasts ==

== ENCOUNTER → 2025-08-20 | Outpatient (CLI) | payer OTHER ==
[2025-08-20 15:42] LABS: FREE T4 1.4 NG/DL (0.89-1.76)
== END ==
LOC: M PLALAB 14:11
PROVIDERS: ATTEND Nurse Practitioner Family
DX: E03.9 Hypothyroidism, unspecified (principal)

== ENCOUNTER 2025-08-28 10:43 | Emergency (ER) | payer OTHER ==
[~2025-08-28] VITALS: Ht 160 cm; Wt 75.2 kg
[2025-08-28 11:41] LABS: BASO # 0.1 10^3/uL (0.0-0.2); BASO % 1.1 % (0.0-1.0); EOS # 0.3 10^3/uL (0.0-0.5); EOS % 3.9 % (0.0-3.0); LYMPH # 1.5 10^3/uL (1.5-5.0); LYMPH % 18.6 % (24.0-44.0); MONO # 0.6 10^3/uL (0.0-0.8); MONO % 7.6 % (2.0-8.0); NEUTROPHILS # 5.4 10^3/uL (1.5-8.5); NEUTROPHILS % 68.5 % (36.0-66.0); PLATELET COUNT, AUTOMATED 311 10^3/uL (150-450)
[2025-08-28 12:16] LABS: ALT/SGPT 16 U/L (7.0-40); AST/SGOT 20 U/L (<34); CALCIUM LEVEL 9.4 MG/DL (8.3-10.6); CARBON DIOXIDE LEVEL 30 MMOL/L (20-31); CHLORIDE LEVEL 108 MMOL/L (98-107); CREATININE FOR GFR 0.91 MG/DL (0.55-1.30); GLOMERULAR FILTRATION RATE 72.2 (>45); POTASSIUM SERUM 4.1 MMOL/L (3.5-5.1); SODIUM LEVEL 143 MMOL/L (136-145)
[2025-08-28] MEDS ORDERED: ISOVUE-370 76% 100 ML VIAL As Ordered ONE (12:24)
[2025-08-28] MEDS: GLYCERIN ADULT SUPP PR ONE (14:25)
[2025-08-28 16:18] VITALS: BP 160/70; TEMP 97.8; O2SAT 99
== END 2025-08-28 16:37 | disposition home or self-care (01) ==
LOC: M ED 10:43
DX: R10.9 Unspecified abdominal pain (principal); K59.00 Constipation, unspecified; F43.10 Post-traumatic stress disorder, unspecified; F41.9 Anxiety disorder, unspecified; F20.9 Schizophrenia, unspecified; F31.9 Bipolar disorder, unspecified; F12.10 Cannabis abuse, uncomplicated; Z88.2 Allergy status to sulfonamides; Z88.8 Allergy status to other drugs, medicaments and biological substances; Z79.899 Other long term (current) drug therapy
CPT/HCPCS: 36415; 74018; 74177; 80048; 80076; 83690; 85025; 99284; Q9967